=== PATIENT | female | born 1975 | race Caucasian/White ===

== ENCOUNTER → 2016-05-04 | Outpatient (CLI) | payer OTHER ==
--- NOTE | 2016-05-05 11:52 | KCIC ---
PROCEDURE MR of the right shoulder HISTORY Right shoulder pain and limited range of motion for 2 years. No known injury. TECHNIQUE Standard noncontrast images are obtained. COMPARISON FINDINGS The acromioclavicular joint is mildly degenerative and hypertrophic with undersurface mass-effect. Rotator cuff tendinosis with thickening and signal. No evidence of rotator cuff tear. No significant joint subdeltoid bursal fluid or glenohumeral joint fluid. No evidence of a labral tear. No acute articular cartilage defect. The biceps tendon is intact. No bone lesion. No acute fracture. No acute soft tissue injury. IMPRESSION 1. Rotator cuff tendinosis, without evidence of a tear. 2. Mild acromioclavicular joint osteoarthritis. Electronically signed by: Dann Bass MD (May 05, 2016 11:50:53)
== END | disposition home or self-care (01) ==
LOC: KCIC MRI 17:23
PROVIDERS: ATTEND Nurse Practitioner Family
DX: M19.011 Primary osteoarthritis, right shoulder (principal); M25.511 Pain in right shoulder
CPT/HCPCS: 73221

== ENCOUNTER → 2016-06-16 | Outpatient (CLI) | payer OTHER ==
[~2016-06-16] MED LIST: BUPIVACAINE MPF 0.5% 10 ML VIAL for KCIC. IJ ONE; IOHEXOL 300 MG/ML 50 ML VIAL. INT ART ONE; LIDOCAINE 1% Multi-Dose 20 ML VIAL. ID ONE; methylPREDNISolone ACETATE 40 MG/ML VIAL. INT ART ONE
--- NOTE | 2016-06-16 16:50 | KCIC ---
PROCEDURE: Therapeutic right biceps tendon sheath injection using fluoroscopic guidance. HISTORY Chronic pain TECHNIQUE The procedure was explained to the patient as were potential risks, including among others infection, bleeding or allergic reaction. All questions were answered. Informed written consent was obtained. The anterior shoulder was prepped and draped in the usual sterile manner. Following administration of local anesthetic, a 22-gauge needle was advanced into the biceps tendon sheath using anatomic landmarks. Following negative aspiration, position was confirmed with 1 cc Omnipaque-300 contrast. Then a mixture of 2 cc (80 mg) Depo-Medrol and 1 cc 0.5% Marcaine were injected without difficulty. The needle was removed. There was good hemostasis at the injection site. The patient left in stable condition without immediate complication. The patient was given postprocedural instructions, instructed to contact us or the emergency room if there are any complications. Two spot images are obtained. FLUOROSCOPY TIME: 41 seconds Electronically signed by: Dann Bass MD (June 16, 2016 16:48:46)
== END | disposition home or self-care (01) ==
LOC: KCIC 15:17
PROVIDERS: ATTEND Orthopaedic Surgery Sports Medicine
DX: M25.511 Pain in right shoulder (principal); G89.29 Other chronic pain
CPT/HCPCS: 20610; 77002; J1030; Q9967

== ENCOUNTER 2016-07-25 08:11 | Observation (INO) | payer OTHER ==
[~2016-07-25] VITALS: Ht 162.6 cm; Wt 58.5 kg
[2016-07-25] MEDS ORDERED: ONDANSETRON PF 4 MG/2 ML VIAL. IV ONE (08:30)
[2016-07-25] MEDS ORDERED: IV NORMAL SALINE 1000ML BAG 1,000 ML IV ONE (08:30)
[2016-07-25] MEDS: fentaNYL PF VIAL 100 MCG/2 ML VIAL IV PRN ×4 (08:33→10:05)
[2016-07-25] MEDS ORDERED: IOHEXOL 300 MG/ML 75 ML VIAL IV ONE (08:45)
[2016-07-25 08:47] LABS: BASO # 0.1 x10^3/uL (0.0-0.2); BASO % 1 % (0-3); EOS % 2 % (0-3); HEMATOCRIT 40.3 % (36.0-47.0); HEMOGLOBIN 13.4 g/dL (12.0-15.5); LYMPH % 28 % (24-48); MEAN CORPUSCULAR HEMOGLOBIN 29 pg (25-35); MEAN CORPUSCULAR HGB CONC 33 g/dL (31-37); MEAN CORPUSCULAR VOLUME 86 fL (79-100); MONO % 8 % (0-9); NEUT % 62 % (31-73); PLATELET COUNT 338 x10^3/uL (140-400); RED BLOOD COUNT 4.69 x10^6/uL (3.50-5.40); RED CELL DISTRIBUTION WIDTH 14.1 % (11.5-14.5); WHITE BLOOD COUNT 7.2 x10^3/uL (4.0-11.0)
[2016-07-25 08:55] LABS: GFR 61.7; POTASSIUM 3.5 mmol/L (3.5-5.1)
[2016-07-25] MEDS ORDERED: CONTRAST GIVEN MC PRN (09:00)
[2016-07-25 09:01] LABS: ALBUMIN 3.7 g/dL (3.4-5.0); ALBUMIN/GLOBULIN RATIO 0.9 (1.0-1.7); TOTAL BILIRUBIN 0.3 mg/dL (0.2-1.0); TOTAL PROTEIN 7.8 g/dL (6.4-8.2)
[2016-07-25 10:02] LABS: BACTERIA,URINE MODERATE /HPF (0-FEW); BILIRUBIN,URINE NEGATIVE (NEG); GLUCOSE,URINE NEGATIVE (NEG); NITRITE,URINE NEGATIVE (NEG); PH,URINE 5.5; PROTEIN,URINE NEGATIVE (NEG-TRACE); SQUAMOUS EPITHELIAL CELL,UR MANY /LPF; UROBILINOGEN,URINE 0.2 mg/dL (0.2 mg/dL)
[2016-07-25] MEDS ORDERED: HYDROmorphone 2 MG/ML VIAL ONE (10:25)
[2016-07-25] MEDS ORDERED: HYDROmorphone 2 MG/ML VIAL IV ONE (11:00)
--- NOTE | 2016-07-25 11:33 | RAD ---
EXAM: CT abdomen/pelvis with contrast. HISTORY: Right lower quadrant pain and nausea. TECHNIQUE: Computed tomography of the abdomen and pelvis was performed after the intravenous administration of 75 mL Omnipaque 300. COMPARISON: 10/02/2009. FINDINGS: Lung windows through the visualized portions of the bases reveal mild atelectasis. Bone windows reveal no suspicious lesions. A low-density focus adjacent to the falciform ligament is most likely a benign perfusion related phenomenon. There are no suspicious hepatic lesions. The gallbladder, pancreas, adrenal glands and spleen are unremarkable. A small diverticulum is incidentally noted along the posterior aspect of the gastric cardia. A calculus at the right ureterovesical junction measures 4 mm. There is moderate right hydronephrosis and hydroureter with perinephric stranding. No additional renal or ureteral calculi are seen. There are no pathologically enlarged lymph nodes. The appendix is not inflamed. There is no obstruction. IMPRESSION: 1. 4 mm right ureterovesical junction calculus with moderate proximal obstructive findings. *One or more of the following individualized dose reduction techniques were utilized for this examination: 1. Automated exposure control. 2. Adjustment of the mA and/or kV according to patient size. 3. Use of iterative reconstruction technique.
[2016-07-25] MEDS ORDERED: ACETAMINOPHEN 325 MG TABLET. PO PRN (12:30)
[2016-07-25] MEDS ORDERED: ONDANSETRON PF 4 MG/2 ML VIAL. IV PRN (12:30)
[2016-07-25] MEDS: KETOROLAC TROMETHAMINE 30 MG/ML INJ. IV PRN ×2 (12:36→18:31)
[2016-07-25] MEDS: MORPHINE SULFATE 4 MG/ML DISP.SYRIN. IV PRN ×3 (12:39→17:29)
[2016-07-25 13:05] VITALS: BP 170/74
--- NOTE | 2016-07-25 13:12 | PHYS DOC ---
Past Medical History Past Medical History: Anxiety, Depression, Ovarian Cyst, Other Additional Past Medical Histor: INSOMNIA, CHRONIC RIGHT SHOULDER PAIN. Past Surgical History: No Surgical History Alcohol Use: Occasionally Drug Use: None Adult General Chief Complaint Chief Complaint: ABDOMINAL PAIN HPI HPI Patient is a 40 year old female who presents with abdominal pain. The patient reports onset of right lower quadrant pain waking her from sleep this morning at 0600. She states pain is severe, unable to find a position of comfort. She has nausea but has not vomited. Denies fevers or chills, hematemesis, diarrhea or constipation, hematochezia or melena, dysuria or hematuria. Denies previous history of similar pain. No abdominal surgeries. History of kidney stone and ovarian cyst. Review of Systems Review of Systems Constitutional: Denies fever or chills Eyes: Denies change in visual acuity HENT: Denies nasal congestion or sore throat Respiratory: Denies cough or shortness of breath Cardiovascular: Denies chest pain or edema GI: Reports abdominal pain, nausea, denies vomiting, bloody stools or diarrhea : Denies dysuria or hematuria Musculoskeletal: Denies back pain or joint pain Integument: Denies rash or skin lesions Neurologic: Denies headache, focal weakness or sensory changes Current Medications Current Medications Current Medications Medications (Trade) Dose Ordered Sig/Moreno Start Time Stop Time Status Last Admin Dose Admin Fentanyl Citrate (Fentanyl 2ml Vial) 50 mcg PRN Q15MIN PRN 07/25/16 08:30 07/26/16 08:29 07/25/16 10:05 50 MCG Hydromorphone HCl (Dilaudid) 2 mg STK-MED ONCE 07/25/16 10:25 07/25/16 10:26 DC Info (Do NOT chart on this entry -- for MONITORING) 1 each PRN DAILY PRN 07/25/16 09:00 07/27/16 08:59 Iohexol (Omnipaque 300 Mg/ml) 75 ml 1X ONCE 07/25/16 08:45 07/25/16 08:47 DC 07/25/16 09:54 75 ML Ondansetron HCl (Zofran) 4 mg 1X ONCE 07/25/16 08:30 07/25/16 08:31 DC 07/25/16 08:33 4 MG Sodium Chloride 1,000 ml @ 1,000 mls/hr 1X ONCE 07/25/16 08:30 07/25/16 09:29 DC 07/25/16 08:33 1,000 MLS/HR Allergies Allergies Allergies Coded Allergies Type Severity Reaction Last Updated Verified erythromycin base Allergy Intermediate 06/16/16 Yes Physical Exam Physical Exam Constitutional: Well developed, well nourished, moderate distress HENT: Normocephalic, atraumatic, bilateral external ears normal, oropharynx moist, nose normal. Eyes: conjunctiva normal, no discharge. Neck: supple, no stridor. Cardiovascular: RRR, no murmurs, no edema. Lungs & Thorax: LCTAB, no wheezing, no respiratory distress. Abdomen: soft, right lower quadrant tenderness with voluntary guarding, no rebound tenderness, abdomen otherwise nontender, no masses or pulsatile masses, nondistended. Skin: Warm, dry, no erythema, no rash. Back: No CVA tenderness Extremities: No tenderness, no edema. Neurologic: Alert and oriented X 3, no focal deficits noted. Psychologic: Anxious Current Patient Data Vital Signs Vital Signs Date Time Temp Pulse Resp B/P (MAP) Pulse Ox O2 Delivery O2 Flow Rate FiO2 07/25/16 11:30 58 15 161/99 (119) 96 07/25/16 08:21 97.5 Room Air 97.5 Lab Values Laboratory Tests Test 07/25/16 08:04 07/25/16 08:25 07/25/16 08:50 POC Urine HCG, Qualitative Hcg negative (Negative) White Blood Count 7.2 x10^3/uL (4.0-11.0) Red Blood Count 4.69 x10^6/uL (3.50-5.40) Hemoglobin 13.4 g/dL (12.0-15.5) Hematocrit 40.3 % (36.0-47.0) Mean Corpuscular Volume 86 fL (79-100) Mean Corpuscular Hemoglobin 29 pg (25-35) Mean Corpuscular Hemoglobin Concent 33 g/dL (31-37) Red Cell Distribution Width 14.1 % (11.5-14.5) Platelet Count 338 x10^3/uL (140-400) Neutrophils (%) (Auto) 62 % (31-73) Lymphocytes (%) (Auto) 28 % (24-48) Monocytes (%) (Auto) 8 % (0-9) Eosinophils (%) (Auto) 2 % (0-3) Basophils (%) (Auto) 1 % (0-3) Neutrophils # (Auto) 4.5 x10^3uL (1.8-7.7) Lymphocytes # (Auto) 2.0 x10^3/uL (1.0-4.8) Monocytes # (Auto) 0.6 x10^3/uL (0.0-1.1) Eosinophils # (Auto) 0.1 x10^3/uL (0.0-0.7) Basophils # (Auto) 0.1 x10^3/uL (0.0-0.2) Sodium Level 142 mmol/L (136-145) Potassium Level 3.5 mmol/L (3.5-5.1) Chloride Level 105 mmol/L (98-107) Carbon Dioxide Level 25 mmol/L (21-32) Anion Gap 12 (6-14) Blood Urea Nitrogen 14 mg/dL (7-20) Creatinine 1.0 mg/dL (0.6-1.0) Estimated GFR (Cockcroft-Gault) 61.7 BUN/Creatinine Ratio 14 (6-20) Glucose Level 132 mg/dL (70-99) H Calcium Level 9.0 mg/dL (8.5-10.1) Total Bilirubin 0.3 mg/dL (0.2-1.0) Aspartate Amino Transferase (AST) 18 U/L (15-37) Alanine Aminotransferase (ALT) 37 U/L (14-59) Alkaline Phosphatase 78 U/L (46-116) Total Protein 7.8 g/dL (6.4-8.2) Albumin 3.7 g/dL (3.4-5.0) Albumin/Globulin Ratio 0.9 (1.0-1.7) L Urine Collection Type Unknown Urine Color Yellow Urine Clarity Cloudy Urine pH 5.5 Urine Specific [place] 1.025 Urine Protein Negative mg/dL (NEG-TRACE) Urine Glucose (UA) Negative mg/dL (NEG) Urine Ketones (Stick) Negative mg/dL (NEG) Urine Blood Large (NEG) Urine Nitrite Negative (NEG) Urine Bilirubin Negative (NEG) Urine Urobilinogen Dipstick 0.2 mg/dL (0.2 mg/dL) Urine Leukocyte Esterase Moderate (NEG) Urine RBC 11-20 /HPF (0-2) Urine WBC 5-10 /HPF (0-4) Urine Squamous Epithelial Cells Many /LPF Urine Bacteria Moderate /HPF (0-FEW) Laboratory Tests 07/25/16 08:25 Laboratory Tests 07/25/16 08:25 EKG EKG [] Radiology/Procedures Radiology/Procedures PROCEDURE: CT ABD PELV W/ IV CONTRST ONLY EXAM: CT abdomen/pelvis with contrast. HISTORY: Right lower quadrant pain and nausea. TECHNIQUE: Computed tomography of the abdomen and pelvis was performed after the intravenous administration of 75 mL Omnipaque 300. COMPARISON: 10/02/2009. FINDINGS: Lung windows through the visualized portions of the bases reveal mild atelectasis. Bone windows reveal no suspicious lesions. A low-density focus adjacent to the falciform ligament is most likely a benign perfusion related phenomenon. There are no suspicious hepatic lesions. The gallbladder, pancreas, adrenal glands and spleen are unremarkable. A small diverticulum is incidentally noted along the posterior aspect of the gastric cardia. A calculus at the right ureterovesical junction measures 4 mm. There is moderate right hydronephrosis and hydroureter with perinephric stranding. No additional renal or ureteral calculi are seen. There are no pathologically enlarged lymph nodes. The appendix is not inflamed. There is no obstruction. IMPRESSION: 1. 4 mm right ureterovesical junction calculus with moderate proximal obstructive findings. *One or more of the following individualized dose reduction techniques were utilized for this examination: 1. Automated exposure control. 2. Adjustment of the mA and/or kV according to patient size. 3. Use of iterative reconstruction technique. DICTATED and SIGNED BY: ALFRED DAWN MD DATE: 07/25/161123[] Course & Med Decision Making Course & Med Decision Making Pertinent Labs and Imaging studies reviewed. (See chart for details) The patient presents with right lower quadrant pain. Gave pain medication, antiemetics, IV fluids. Obtained labs, UA, CT of the abdomen and pelvis. There was a significant delay in receiving radiology read after the CT was performed. Ultimately found to have 4 mm ureteral stone. She had ongoing severe pain. There is evidence of current infection. She did not feel well enough to go home. Discussed with Dr. Fontenot who is out of town this week and not available for consult. The patient prefers to stay at [facility] rather than be transferred. I discussed with Dr. pena who agrees to admit to the hospital. Patient does understand that she'll have to be transferred if any urologic intervention is needed. Gave Rocephin here, urine culture sent. We'll continue IV fluid hydration and pain medication. The patient is being admitted in stable condition. Dragon Disclaimer Dragon Disclaimer This electronic medical record was generated, in whole or in part, using a voice recognition dictation system. Departure Departure Impression: Primary Impression: Kidney stone Additional Impressions: Hydronephrosis Pyelonephritis Disposition: ADMITTED INPATIENT Admitting Physician: Merna Pena Condition: STABLE Referrals: CLARISSA HALL APRN (PCP) Problem Qualifiers Additional Impressions: Hydronephrosis Hydronephrosis type: with ureteral calculous obstruction Qualified Codes: N13.2 - Hydronephrosis with renal and ureteral calculous obstruction ABDELRAHMAN SHERIFF MD Jul 25, 2016 13:12
[2016-07-25 15:00] VITALS: BP 106/68
[2016-07-25] MEDS: IV NORMAL SALINE 1000ML BAG 1,000 ML IV SCH ×2 (15:15→19:52)
[2016-07-25] MEDS ORDERED: ZOLP12.52 PO (15:23)
[2016-07-25] MEDS ORDERED: PHEN37.5 PO (15:23)
[2016-07-25] MEDS ORDERED: CETI10TA16 PO (15:23)
[2016-07-25] MEDS ORDERED: SERT50TA PO (15:23)
[2016-07-25] MEDS ORDERED: DOCU-109 PO (15:23)
[2016-07-25] MEDS ORDERED: CYCL10TA2 PO (15:23)
[2016-07-25] MEDS ORDERED: NORE-68 PO (15:23)
--- NOTE | 2016-07-25 16:41 | ACF ---
Admission Forms Criteria RENAL COLIC AND KIDNEY STONES Clinical Indications for Admission to Inpatient Care ( Place 'X' for any and all applicable criteria): Admission is indicated for ANY ONE of the following (1)(2)(3)(4): [X ]I. Inpatient admission required rather than observation care (Also use Renal Colic and Kidney Stones: Observation Care Criteria as appropriate) because of ANY ONE of the following: [X ]a) Severe pain requiring acute inpatient management [ ]b) Urinary tract infection identified [ ]c) Vomiting that is severe or persistent [ ]d) IV fluid required rather than oral rehydration to replace significant ongoing (eg, for greater than 24 hours) losses (greater than 200 mL/hr or 3 L/m2 per day) [ ]e) Percutaneous or open drainage (eg, abscess, biliary tract) procedures [ ]f) Other condition, treatment or monitoring requiring inpatient admission [ ]II. Impending acute renal failure [ ]III. Bilateral obstruction [ ]IV. Single kidney with obstruction [ ]V. Transplanted kidney with obstruction [ ]. Possible open surgical procedure needed (eg, pyonephrosis, stone removal not amendable to other means) [ ]VII. Hemodynamic instability Extended stay beyond goal length of stay may be needed for(2)(3)(31): [ ]a) Failed initial stone removal (32) [ ]b) Pyonephrosis [ ]c) Obstructive uropathy with urinary tract infection [ ]d) Procedure complications [ ]e) Comorbidities (22) The original [email or web address] content created by [employer] has been revised. The portions of the content which have been revised are identified through the use of italic text or in bold, and [facility] has neither reviewed nor approved the modified material. All other unmodified content is copyright [email or web address]. Please see references footnoted in the original [email or web address] edition 2016 Admission Criteria Met?: Yes MELISSA TOUSSAINT Jul 25, 2016 16:41
[2016-07-25] MEDS ORDERED: TAMSULOSIN 0.4 MG CAP.ER.24H. PO ONE (18:30)
[2016-07-25] MEDS ORDERED: POTASSIUM CHLORIDE 20 MEQ TABLET.ER. PO ONE (18:30)
[2016-07-25] MEDS ORDERED: MORPHINE SULFATE 10 MG/ML VIAL. IV PRN (18:45)
--- NOTE | 2016-07-25 18:54 | PDOC1 ---
History and Physical Date of Admission Date of Admission DATE: 07/25/16 TIME: 18:48 Identification/Chief Complaint Chief Complaint flank pain, right Problems: Source Source: Chart review, Patient History of Present Illness History of Present Illness Ms. Sharpe is a 40 year old female admit from ER with abdominal pain, came by private vehicle, acute pain 8 or 9/10 Today, new onset of right lower quadrant pain this AM. similar to prev. pain , acute pain of renal stone that she passed 7 years ago, while still in ER. today, the pain is severe, unable to find a position of comfort.\ IV pain meds some help. works at the [employer] Past Medical History Cardiovascular: No pertinent hx Pulmonary: No pertinent hx GI: No pertinent hx Heme/Onc: No pertinent hx Hepatobiliary: No pertinent hx Psych: Anxiety, Depression Family History Family History: No Significant Social History Smoke: No ALCOHOL: none Current Problem List Problem List Problems Medical Problems: (1) Hydronephrosis Status: Acute (2) Pyelonephritis Status: Acute Problems: Current Medications Current Medications Current Medications Sodium Chloride 1,000 ml @ 1,000 mls/hr 1X ONCE IV Last administered on 08:33; Start 07/25/16 at 08:30; Stop 07/25/16 at 09:29; Status DC Ondansetron HCl (Zofran) 4 mg 1X ONCE IV Last administered on 07/25/16 08:33 ; Start 07/25/16 at 08:30; Stop 07/25/16 at 08:31; Status DC Fentanyl Citrate (Fentanyl 2ml Vial) 50 mcg PRN Q15MIN PRN IV PAIN GREATER THAN 3/10 Last administered on 07/25/16 10:05; Start 07/25/16 at 08:30; Stop at 18:28; Status DC Iohexol (Omnipaque 300 Mg/ml) 75 ml 1X ONCE IV Last administered on 07/25/16 09:54; Start 07/25/16 at 08:45; Stop 07/25/16 at 08:47; Status DC Info (Do NOT chart on this entry -- for MONITORING) 1 each PRN DAILY PRN MC SEE COMMENTS; Start 07/25/16 at 09:00; Stop 07/27/16 at 08:59 Hydromorphone HCl (Dilaudid) 1 mg 1X ONCE IV Last administered on 07/25/16 10 :27; Start 07/25/16 at 11:00; Stop 07/25/16 at 11:01; Status DC Hydromorphone HCl (Dilaudid) 2 mg STK-MED ONCE .ROUTE ; Start 07/25/16 at 10:25 ; Stop 07/25/16 at 10:26; Status DC Ceftriaxone Sodium 50 ml @ 100 mls/hr 1X ONCE IV Last administered on 12:36; Start 07/25/16 at 12:30; Stop 07/25/16 at 12:48; Status DC Ondansetron HCl (Zofran) 4 mg PRN Q8HRS PRN IV NAUSEA/VOMITING; Start 07/25/16 at 12:30; Stop 07/26/16 at 12:29 Morphine Sulfate 4 mg PRN Q2HR PRN IV PAIN Last administered on 07/25/16 17:29 ; Start 07/25/16 at 12:30; Stop 07/25/16 at 18:43; Status DC Sodium Chloride 1,000 ml @ 150 mls/hr Q6H40M IV Last administered on 15:15; Start 07/25/16 at 12:22; Stop 07/26/16 at 12:21 Acetaminophen (Tylenol) 650 mg PRN Q4HRS PRN PO FEVER; Start 07/25/16 at 12:30 ; Stop 07/26/16 at 12:29 Ketorolac Tromethamine (Toradol) 30 mg PRN Q6HRS PRN IV PAIN Last administered on 07/25/16 18:31; Start 07/25/16 at 12:30; Stop 07/30/16 at 12:29 Ceftriaxone Sodium 1 gm/ Sodium Chloride 50 ml @ 100 mls/hr 1X ONCE IV ; Start 07/25/16 at 13:00; Stop 07/25/16 at 13:29; Status Cancel Tamsulosin HCl (Flomax) 0.4 mg 1X ONCE PO Last administered on 07/25/16 18:26 ; Start 07/25/16 at 18:30; Stop 07/25/16 at 18:31; Status DC Tamsulosin HCl (Flomax) 0.4 mg DAILY PO ; Start 07/26/16 at 09:00 Potassium Chloride (Klor-Con) 20 meq 1X ONCE PO Last administered on t 18:26; Start 07/25/16 at 18:30; Stop 07/25/16 at 18:31; Status DC Morphine Sulfate 6 mg PRN Q2HR PRN IV PAIN; Start 07/25/16 at 18:45; Status UNV Morphine Sulfate (Morphine Ir) 15 mg Q4HRS PRN PO PAIN; Start 07/25/16 at 18:45 ; Status UNV Active Scripts Active Reported Colace (Docusate Sodium) 100 Mg Capsule 100 Mg PO DAILY Cyclobenzaprine Hcl 10 Mg Tablet 1 Tab PO QHS Ambien Cr (Zolpidem Tartrate) 12.5 Mg Tab.mphase 1 Tab PO QHS Zoloft (Sertraline Hcl) 50 Mg Tablet 1.5 Tab PO DAILY Phentermine Hcl 37.5 Mg Tablet 1 Tab PO DAILY Cetirizine Hcl 10 Mg Tablet 1 Tab PO DAILY Microgestin Fe 1.5-30 Tab (Noreth A-Et Estra/Fe Fumarate) 1 Each Tablet 1 Tab PO DAILY Allergies Allergies: Coded Allergies: erythromycin base (Verified Allergy, Intermediate, 06/16/16) lactose (Verified Allergy, Intermediate, Nausea and Vomiting, 07/25/16) ROS Review of System Denies fevers or chills, hematemesis, diarrhea or constipation, hematochezia or melena, dysuria or hematuria General: YES: Malaise, No: Chills, Night Sweats, Fatigue, Appetite, Other PSYCHOLOGICAL ROS: No: Anxiety, Behavioral Disorder, Concentration difficultie , Decreased libido, Depression, Disorientation, Hallucinations, Hostility, Irritablity, Memory difficulties, Mood Swings, Obsessive thoughts, Other Eyes: No Blurry vision, No Decreased vision, No Double vision, No Dry eyes, No Excessive tearing, No Eye Pain, No Itchy Eyes, No Loss of vision, No Photophobia , No Scotomata, No Uses contacts, No Uses glasses, No Other HEENT: No: Heacaches, Visual Changes, Hearing change, Nasal congestion, Nasal discharge, Oral lesions, Sinus pain, Sore Throat, Epistaxis, Sneezing, Snoring, Tinnitus, Vertigo, Vocal changes, Other Respiratory: No: Cough, Hemoptysis, Orthopnea, Pleuritic Pain, Shortness of breath, SOB with excertion, Sputum Changes, Stridor, Tachypnea, Wheezing, Other Cardiovascular: No Chest Pain, No Palpitations, No Orthopnea, No Paroxysmal Noc. Dyspnea, No Edema, No Lt Headedness, No Other Gastrointestinal: Yes Abdominal Pain Genitourinary: YES Pain, YES Flank Pain, No Dysuria, No Frequency, No Incontinence, No Hematuria, No Retention, No Discharge, No Urgency, No Other, No , No , No , No , No , No , No Musculoskeletal: No Gait Disturbance, No Joint Pain, No Joint Stiffness, No Joint Swelling, No Muscle Pain, No Muscular Weakness, No Pain In:, No Swelling In:, No Other Neurological: No Behavorial Changes, No Bowel/Bladder ControlChng, No Confusion , No Dizziness, No Gait Disturbance, No Headaches, No Impaired Coord/balance, No Memory Loss, No Numbness/Tingling, No Seizures, No Speech Problems, No Tremors, No Visual Changes, No Weakness, No Other Skin: No Dry Skin, No Eczema, No Hair Changes, No Lumps, No Mole Changes, No Mottling, No Nail Changes, No Pruritus, No Rash, No Skin Lesion Changes, No Other, No Acne Physical Exam General: Alert, Oriented X3, Cooperative, No acute distress HEENT: Atraumatic, PERRLA, EOMI Lungs: Clear to auscultation, Normal air movement Heart: S1S2, no murmurs Abdomen: Normal bowel sounds, Soft Rectal Exam: deferred Extremities: No clubbing, No cyanosis, Normal pulses Skin: No significant lesion Neuro: Normal speech, Normal tone, Sensation intact Psych/Mental Status: Mood NL Vitals Vitals Vital Signs Date Time Temp Pulse Resp B/P (MAP) Pulse Ox O2 Delivery O2 Flow Rate FiO2 07/25/16 17:59 16 Room Air 07/25/16 15:00 98.3 75 106/68 (81) 98 98.3 Labs Labs Laboratory Tests Test 07/25/16 08:04 07/25/16 08:25 07/25/16 08:50 Bedside Urine HCG, Qualitative Hcg negative (Negative) White Blood Count 7.2 x10^3/uL (4.0-11.0) Red Blood Count 4.69 x10^6/uL (3.50-5.40) Hemoglobin 13.4 g/dL (12.0-15.5) Hematocrit 40.3 % (36.0-47.0) Mean Corpuscular Volume 86 fL (79-100) Mean Corpuscular Hemoglobin 29 pg (25-35) Mean Corpuscular Hemoglobin Concent 33 g/dL (31-37) Red Cell Distribution Width 14.1 % (11.5-14.5) Platelet Count 338 x10^3/uL (140-400) Neutrophils (%) (Auto) 62 % (31-73) Lymphocytes (%) (Auto) 28 % (24-48) Monocytes (%) (Auto) 8 % (0-9) Eosinophils (%) (Auto) 2 % (0-3) Basophils (%) (Auto) 1 % (0-3) Neutrophils # (Auto) 4.5 x10^3uL (1.8-7.7) Lymphocytes # (Auto) 2.0 x10^3/uL (1.0-4.8) Monocytes # (Auto) 0.6 x10^3/uL (0.0-1.1) Eosinophils # (Auto) 0.1 x10^3/uL (0.0-0.7) Basophils # (Auto) 0.1 x10^3/uL (0.0-0.2) Sodium Level 142 mmol/L (136-145) Potassium Level 3.5 mmol/L (3.5-5.1) Chloride Level 105 mmol/L (98-107) Carbon Dioxide Level 25 mmol/L (21-32) Anion Gap 12 (6-14) Blood Urea Nitrogen 14 mg/dL (7-20) Creatinine 1.0 mg/dL (0.6-1.0) Estimated GFR (Cockcroft-Gault) 61.7 BUN/Creatinine Ratio 14 (6-20) Glucose Level 132 mg/dL (70-99) Calcium Level 9.0 mg/dL (8.5-10.1) Total Bilirubin 0.3 mg/dL (0.2-1.0) Aspartate Amino Transf (AST/SGOT) 18 U/L (15-37) Alanine Aminotransferase (ALT/SGPT) 37 U/L (14-59) Alkaline Phosphatase 78 U/L (46-116) Total Protein 7.8 g/dL (6.4-8.2) Albumin 3.7 g/dL (3.4-5.0) Albumin/Globulin Ratio 0.9 (1.0-1.7) Urine Collection Type Unknown Urine Color Yellow Urine Clarity Cloudy Urine pH 5.5 Urine Specific [place] 1.025 Urine Protein Negative mg/dL (NEG-TRACE) Urine Glucose (UA) Negative mg/dL (NEG) Urine Ketones (Stick) Negative mg/dL (NEG) Urine Blood Large (NEG) Urine Nitrite Negative (NEG) Urine Bilirubin Negative (NEG) Urine Urobilinogen Dipstick 0.2 mg/dL (0.2 mg/dL) Urine Leukocyte Esterase Moderate (NEG) Urine RBC 11-20 /HPF (0-2) Urine WBC 5-10 /HPF (0-4) Urine Squamous Epithelial Cells Many /LPF Urine Bacteria Moderate /HPF (0-FEW) Laboratory Tests Test 07/25/16 08:04 07/25/16 08:25 07/25/16 08:50 Bedside Urine HCG, Qualitative Hcg negative (Negative) White Blood Count 7.2 x10^3/uL (4.0-11.0) Red Blood Count 4.69 x10^6/uL (3.50-5.40) Hemoglobin 13.4 g/dL (12.0-15.5) Hematocrit 40.3 % (36.0-47.0) Mean Corpuscular Volume 86 fL (79-100) Mean Corpuscular Hemoglobin 29 pg (25-35) Mean Corpuscular Hemoglobin Concent 33 g/dL (31-37) Red Cell Distribution Width 14.1 % (11.5-14.5) Platelet Count 338 x10^3/uL (140-400) Neutrophils (%) (Auto) 62 % (31-73) Lymphocytes (%) (Auto) 28 % (24-48) Monocytes (%) (Auto) 8 % (0-9) Eosinophils (%) (Auto) 2 % (0-3) Basophils (%) (Auto) 1 % (0-3) Neutrophils # (Auto) 4.5 x10^3uL (1.8-7.7) Lymphocytes # (Auto) 2.0 x10^3/uL (1.0-4.8) Monocytes # (Auto) 0.6 x10^3/uL (0.0-1.1) Eosinophils # (Auto) 0.1 x10^3/uL (0.0-0.7) Basophils # (Auto) 0.1 x10^3/uL (0.0-0.2) Sodium Level 142 mmol/L (136-145) Potassium Level 3.5 mmol/L (3.5-5.1) Chloride Level 105 mmol/L (98-107) Carbon Dioxide Level 25 mmol/L (21-32) Anion Gap 12 (6-14) Blood Urea Nitrogen 14 mg/dL (7-20) Creatinine 1.0 mg/dL (0.6-1.0) Estimated GFR (Cockcroft-Gault) 61.7 BUN/Creatinine Ratio 14 (6-20) Glucose Level 132 mg/dL (70-99) Calcium Level 9.0 mg/dL (8.5-10.1) Total Bilirubin 0.3 mg/dL (0.2-1.0) Aspartate Amino Transf (AST/SGOT) 18 U/L (15-37) Alanine Aminotransferase (ALT/SGPT) 37 U/L (14-59) Alkaline Phosphatase 78 U/L (46-116) Total Protein 7.8 g/dL (6.4-8.2) Albumin 3.7 g/dL (3.4-5.0) Albumin/Globulin Ratio 0.9 (1.0-1.7) Urine Collection Type Unknown Urine Color Yellow Urine Clarity Cloudy Urine pH 5.5 Urine Specific [place] 1.025 Urine Protein Negative mg/dL (NEG-TRACE) Urine Glucose (UA) Negative mg/dL (NEG) Urine Ketones (Stick) Negative mg/dL (NEG) Urine Blood Large (NEG) Urine Nitrite Negative (NEG) Urine Bilirubin Negative (NEG) Urine Urobilinogen Dipstick 0.2 mg/dL (0.2 mg/dL) Urine Leukocyte Esterase Moderate (NEG) Urine RBC 11-20 /HPF (0-2) Urine WBC 5-10 /HPF (0-4) Urine Squamous Epithelial Cells Many /LPF Urine Bacteria Moderate /HPF (0-FEW) VTE Prophylaxis Ordered VTE Prophylaxis Devices: No VTE Pharmacological Prophylaxi: No (obs) Assessment/Plan Assessment/Plan Renal colic Urolithiasis acute flank pain, UTI, possible pyelo from pain admit, pt has passed stone spontaneously before, start flomax, IV fluid home meds, depression, control, allergies, insmonia, we have no urology support here for the next few days, this was discussed with patient at length, limited therapy avail FRANCK SANZ MD Jul 25, 2016 18:54
[2016-07-25] MEDS ORDERED: ZOLPIDEM 5 MG TABLET. PO PRN (19:15)
[2016-07-25 19:35] VITALS: BP_SYST 120; BP_SYST 132; BP_DIAS 72; BP_DIAS 76
[2016-07-25] MEDS: MORPHINE IR 15 MG TABLET PO PRN (19:51)
[2016-07-25] MEDS ORDERED: ZOLPIDEM 5 MG TABLET. PO SCH (21:00)
[2016-07-25] MEDS: CYCLOBENZAPRINE 10 MG TABLET. PO SCH (21:20)
[2016-07-25] MEDS: traZODone 50 MG TABLET. PO PRN (21:20)
[2016-07-25 23:30] VITALS: BP 110/66
[2016-07-26] MEDS: KETOROLAC TROMETHAMINE 30 MG/ML INJ. IV PRN (02:19)
[2016-07-26] MEDS: MORPHINE IR 15 MG TABLET PO PRN ×4 (02:19→16:43)
[2016-07-26 03:21] VITALS: BP 133/85
[2016-07-26] MEDS: IV NORMAL SALINE 1000ML BAG 1,000 ML IV SCH ×4 (05:14→20:55)
[2016-07-26 05:18] LABS: BASO % 0 % (0-3); EOS % 1 % (0-3); HEMATOCRIT 33.6 % (36.0-47.0); HEMOGLOBIN 11.6 g/dL (12.0-15.5); LYMPH # 1.2 x10^3/uL (1.0-4.8); LYMPH % 12 % (24-48); MEAN CORPUSCULAR HEMOGLOBIN 29 pg (25-35); MEAN CORPUSCULAR HGB CONC 34 g/dL (31-37); MEAN CORPUSCULAR VOLUME 85 fL (79-100); MONO % 9 % (0-9); NEUT % 77 % (31-73); PLATELET COUNT 232 x10^3/uL (140-400); RED BLOOD COUNT 3.93 x10^6/uL (3.50-5.40); WHITE BLOOD COUNT 9.9 x10^3/uL (4.0-11.0)
[2016-07-26 05:36] LABS: CALCIUM 7.9 mg/dL (8.5-10.1); CREATININE 1.2 mg/dL (0.6-1.0); POTASSIUM 3.9 mmol/L (3.5-5.1)
[2016-07-26 07:00] VITALS: BP 100/67
[2016-07-26] MEDS: DOCUSATE SODIUM 100 MG CAPSULE. PO SCH (08:37)
[2016-07-26] MEDS: SERTRALINE 25 MG TABLET. PO SCH (08:37)
[2016-07-26] MEDS: CETIRIZINE HCL 10 MG TABLET. PO SCH (08:37)
[2016-07-26] MEDS: TAMSULOSIN 0.4 MG CAP.ER.24H. PO SCH (08:37)
[2016-07-26] MEDS ORDERED: NORETH A ET ESTRA PO SCH ×2 (09:00)
[2016-07-26] MEDS ORDERED: FE FUMARATE PO SCH ×2 (09:00)
[2016-07-26] MEDS ORDERED: IV NORMAL SALINE 1000ML BAG 1,000 ML IV ONE ×2 (10:30→13:00)
[2016-07-26 11:00] VITALS: BP 109/69
[2016-07-26] MEDS ORDERED: IBUPROFEN 800 MG TABLET. PO ONE (12:30)
[2016-07-26] MEDS: SUMAtriptan SUCCINATE 25 MG TABLET PO PRN ×2 (13:12→16:45)
--- NOTE | 2016-07-26 13:13 | PDOC ---
PROGRESS NOTES Chief Complaint Chief Complaint Renal colic Urolithiasis acute flank pain, UTI, possible pyelo depression, insmonia, History of Present Illness History of Present Illness pain has much improved in flank, pain from upper flank has migrated to near the bladder, she reports she can feel the pain move lower overnight no complains of Headache pain, migrane bolus NS X2 liters, cont 150/.hr, check right renal US, check for hydro, some renal change, maybe from toradol, will remove NSAIDS today cont aggressive hydration complains of insomnia, increase ambien dose Vitals Vitals Vital Signs Date Time Temp Pulse Resp B/P (MAP) Pulse Ox O2 Delivery O2 Flow Rate FiO2 07/26/16 11:23 16 Room Air 07/26/16 11:00 98.3 69 109/69 (82) 96 98.3 Physical Exam General: Alert, Oriented X3, Cooperative, No acute distress Abdomen: Normal bowel sounds, Soft Extremities: No clubbing, No cyanosis, Normal pulses Skin: No significant lesion Labs LABS Laboratory Tests Test 07/26/16 04:50 White Blood Count 9.9 x10^3/uL (4.0-11.0) Red Blood Count 3.93 x10^6/uL (3.50-5.40) Hemoglobin 11.6 g/dL (12.0-15.5) Hematocrit 33.6 % (36.0-47.0) Mean Corpuscular Volume 85 fL (79-100) Mean Corpuscular Hemoglobin 29 pg (25-35) Mean Corpuscular Hemoglobin Concent 34 g/dL (31-37) Red Cell Distribution Width 14.0 % (11.5-14.5) Platelet Count 232 x10^3/uL (140-400) Neutrophils (%) (Auto) 77 % (31-73) Lymphocytes (%) (Auto) 12 % (24-48) Monocytes (%) (Auto) 9 % (0-9) Eosinophils (%) (Auto) 1 % (0-3) Basophils (%) (Auto) 0 % (0-3) Neutrophils # (Auto) 7.6 x10^3uL (1.8-7.7) Lymphocytes # (Auto) 1.2 x10^3/uL (1.0-4.8) Monocytes # (Auto) 0.9 x10^3/uL (0.0-1.1) Eosinophils # (Auto) 0.1 x10^3/uL (0.0-0.7) Basophils # (Auto) 0.0 x10^3/uL (0.0-0.2) Sodium Level 142 mmol/L (136-145) Potassium Level 3.9 mmol/L (3.5-5.1) Chloride Level 109 mmol/L (98-107) Carbon Dioxide Level 26 mmol/L (21-32) Anion Gap 7 (6-14) Blood Urea Nitrogen 13 mg/dL (7-20) Creatinine 1.2 mg/dL (0.6-1.0) Estimated GFR (Cockcroft-Gault) 50.0 Glucose Level 111 mg/dL (70-99) Calcium Level 7.9 mg/dL (8.5-10.1) Review of Systems Review of Systems flank and abd pain better now headache urine is very dark, not much urine output, feels dry mouth, Assessment and Plan Assessmemt and Plan Problems Medical Problems: (1) Hydronephrosis Status: Acute (2) Pyelonephritis Status: Acute Problems: Comment Review of Relevant I have reviewed the following items annemarie (where applicable) has been applied. Labs Laboratory Tests Test 07/25/16 08:04 07/25/16 08:25 07/25/16 08:50 07/26/16 04:50 Bedside Urine HCG, Qualitative Hcg negative (Negative) White Blood Count 7.2 x10^3/uL (4.0-11.0) 9.9 x10^3/uL (4.0-11.0) Red Blood Count 4.69 x10^6/uL (3.50-5.40) 3.93 x10^6/uL (3.50-5.40) Hemoglobin 13.4 g/dL (12.0-15.5) 11.6 g/dL (12.0-15.5) Hematocrit 40.3 % (36.0-47.0) 33.6 % (36.0-47.0) Mean Corpuscular Volume 86 fL (79-100) 85 fL (79-100) Mean Corpuscular Hemoglobin 29 pg (25-35) 29 pg (25-35) Mean Corpuscular Hemoglobin Concent 33 g/dL (31-37) 34 g/dL (31-37) Red Cell Distribution Width 14.1 % (11.5-14.5) 14.0 % (11.5-14.5) Platelet Count 338 x10^3/uL (140-400) 232 x10^3/uL (140-400) Neutrophils (%) (Auto) 62 % (31-73) 77 % (31-73) Lymphocytes (%) (Auto) 28 % (24-48) 12 % (24-48) Monocytes (%) (Auto) 8 % (0-9) 9 % (0-9) Eosinophils (%) (Auto) 2 % (0-3) 1 % (0-3) Basophils (%) (Auto) 1 % (0-3) 0 % (0-3) Neutrophils # (Auto) 4.5 x10^3uL (1.8-7.7) 7.6 x10^3uL (1.8-7.7) Lymphocytes # (Auto) 2.0 x10^3/uL (1.0-4.8) 1.2 x10^3/uL (1.0-4.8) Monocytes # (Auto) 0.6 x10^3/uL (0.0-1.1) 0.9 x10^3/uL (0.0-1.1) Eosinophils # (Auto) 0.1 x10^3/uL (0.0-0.7) 0.1 x10^3/uL (0.0-0.7) Basophils # (Auto) 0.1 x10^3/uL (0.0-0.2) 0.0 x10^3/uL (0.0-0.2) Sodium Level 142 mmol/L (136-145) 142 mmol/L (136-145) Potassium Level 3.5 mmol/L (3.5-5.1) 3.9 mmol/L (3.5-5.1) Chloride Level 105 mmol/L (98-107) 109 mmol/L (98-107) Carbon Dioxide Level 25 mmol/L (21-32) 26 mmol/L (21-32) Anion Gap 12 (6-14) 7 (6-14) Blood Urea Nitrogen 14 mg/dL (7-20) 13 mg/dL (7-20) Creatinine 1.0 mg/dL (0.6-1.0) 1.2 mg/dL (0.6-1.0) Estimated GFR (Cockcroft-Gault) 61.7 50.0 BUN/Creatinine Ratio 14 (6-20) Glucose Level 132 mg/dL (70-99) 111 mg/dL (70-99) Calcium Level 9.0 mg/dL (8.5-10.1) 7.9 mg/dL (8.5-10.1) Total Bilirubin 0.3 mg/dL (0.2-1.0) Aspartate Amino Transf (AST/SGOT) 18 U/L (15-37) Alanine Aminotransferase (ALT/SGPT) 37 U/L (14-59) Alkaline Phosphatase 78 U/L (46-116) Total Protein 7.8 g/dL (6.4-8.2) Albumin 3.7 g/dL (3.4-5.0) Albumin/Globulin Ratio 0.9 (1.0-1.7) Urine Collection Type Unknown Urine Color Yellow Urine Clarity Cloudy Urine pH 5.5 Urine Specific [place] 1.025 Urine Protein Negative mg/dL (NEG-TRACE) Urine Glucose (UA) Negative mg/dL (NEG) Urine Ketones (Stick) Negative mg/dL (NEG) Urine Blood Large (NEG) Urine Nitrite Negative (NEG) Urine Bilirubin Negative (NEG) Urine Urobilinogen Dipstick 0.2 mg/dL (0.2 mg/dL) Urine Leukocyte Esterase Moderate (NEG) Urine RBC 11-20 /HPF (0-2) Urine WBC 5-10 /HPF (0-4) Urine Squamous Epithelial Cells Many /LPF Urine Bacteria Moderate /HPF (0-FEW) Laboratory Tests Test 07/26/16 04:50 White Blood Count 9.9 x10^3/uL (4.0-11.0) Red Blood Count 3.93 x10^6/uL (3.50-5.40) Hemoglobin 11.6 g/dL (12.0-15.5) Hematocrit 33.6 % (36.0-47.0) Mean Corpuscular Volume 85 fL (79-100) Mean Corpuscular Hemoglobin 29 pg (25-35) Mean Corpuscular Hemoglobin Concent 34 g/dL (31-37) Red Cell Distribution Width 14.0 % (11.5-14.5) Platelet Count 232 x10^3/uL (140-400) Neutrophils (%) (Auto) 77 % (31-73) Lymphocytes (%) (Auto) 12 % (24-48) Monocytes (%) (Auto) 9 % (0-9) Eosinophils (%) (Auto) 1 % (0-3) Basophils (%) (Auto) 0 % (0-3) Neutrophils # (Auto) 7.6 x10^3uL (1.8-7.7) Lymphocytes # (Auto) 1.2 x10^3/uL (1.0-4.8) Monocytes # (Auto) 0.9 x10^3/uL (0.0-1.1) Eosinophils # (Auto) 0.1 x10^3/uL (0.0-0.7) Basophils # (Auto) 0.0 x10^3/uL (0.0-0.2) Sodium Level 142 mmol/L (136-145) Potassium Level 3.9 mmol/L (3.5-5.1) Chloride Level 109 mmol/L (98-107) Carbon Dioxide Level 26 mmol/L (21-32) Anion Gap 7 (6-14) Blood Urea Nitrogen 13 mg/dL (7-20) Creatinine 1.2 mg/dL (0.6-1.0) Estimated GFR (Cockcroft-Gault) 50.0 Glucose Level 111 mg/dL (70-99) Calcium Level 7.9 mg/dL (8.5-10.1) Medications Current Medications Sodium Chloride 1,000 ml @ 1,000 mls/hr 1X ONCE IV Last administered on 08:33; Start 07/25/16 at 08:30; Stop 07/25/16 at 09:29; Status DC Ondansetron HCl (Zofran) 4 mg 1X ONCE IV Last administered on 07/25/16 08:33 ; Start 07/25/16 at 08:30; Stop 07/25/16 at 08:31; Status DC Fentanyl Citrate (Fentanyl 2ml Vial) 50 mcg PRN Q15MIN PRN IV PAIN GREATER THAN 3/10 Last administered on 07/25/16 10:05; Start 07/25/16 at 08:30; Stop at 18:28; Status DC Iohexol (Omnipaque 300 Mg/ml) 75 ml 1X ONCE IV Last administered on 07/25/16 09:54; Start 07/25/16 at 08:45; Stop 07/25/16 at 08:47; Status DC Info (Do NOT chart on this entry -- for MONITORING) 1 each PRN DAILY PRN MC SEE COMMENTS; Start 07/25/16 at 09:00; Stop 07/26/16 at 05:20; Status DC Hydromorphone HCl (Dilaudid) 1 mg 1X ONCE IV Last administered on 07/25/16 10 :27; Start 07/25/16 at 11:00; Stop 07/25/16 at 11:01; Status DC Hydromorphone HCl (Dilaudid) 2 mg STK-MED ONCE .ROUTE ; Start 07/25/16 at 10:25 ; Stop 07/25/16 at 10:26; Status DC Ceftriaxone Sodium 50 ml @ 100 mls/hr 1X ONCE IV Last administered on 12:36; Start 07/25/16 at 12:30; Stop 07/25/16 at 12:48; Status DC Ondansetron HCl (Zofran) 4 mg PRN Q8HRS PRN IV NAUSEA/VOMITING; Start 07/25/16 at 12:30; Stop 07/26/16 at 05:20; Status DC Morphine Sulfate 4 mg PRN Q2HR PRN IV PAIN Last administered on 07/25/16 17:29 ; Start 07/25/16 at 12:30; Stop 07/25/16 at 18:43; Status DC Sodium Chloride 1,000 ml @ 150 mls/hr Q6H40M IV Last administered on 05:14; Start 07/25/16 at 12:22; Stop 07/26/16 at 05:20; Status DC Acetaminophen (Tylenol) 650 mg PRN Q4HRS PRN PO FEVER; Start 07/25/16 at 12:30 ; Stop 07/26/16 at 05:20; Status DC Ketorolac Tromethamine (Toradol) 30 mg PRN Q6HRS PRN IV PAIN Last administered on 07/26/16 02:19; Start 07/25/16 at 12:30; Stop 07/26/16 at 05:20; Status DC Ceftriaxone Sodium 1 gm/ Sodium Chloride 50 ml @ 100 mls/hr 1X ONCE IV ; Start 07/25/16 at 13:00; Stop 07/25/16 at 13:29; Status Cancel Tamsulosin HCl (Flomax) 0.4 mg 1X ONCE PO Last administered on 07/25/16 18:26 ; Start 07/25/16 at 18:30; Stop 07/25/16 at 18:31; Status DC Tamsulosin HCl (Flomax) 0.4 mg DAILY PO Last administered on 07/26/16 08:37; Start 07/26/16 at 09:00 Potassium Chloride (Klor-Con) 20 meq 1X ONCE PO Last administered on 18:26; Start 07/25/16 at 18:30; Stop 07/25/16 at 18:31; Status DC Morphine Sulfate 6 mg PRN Q2HR PRN IV PAIN Last administered on 07/25/16 21:45 ; Start 07/25/16 at 18:45; Stop 07/26/16 at 19:00 Morphine Sulfate (Morphine Ir) 15 mg PRN Q4HRS PRN PO PAIN Last administered on 07/26/16 10:23; Start 07/25/16 at 18:45 Cetirizine HCl (ZyrTEC) 10 mg DAILY PO Last administered on 07/26/16 08:37; Start 07/26/16 at 09:00 Cyclobenzaprine HCl (Flexeril) 10 mg QHS PO Last administered on 07/25/16 21: 20; Start 07/25/16 at 21:00 Docusate Sodium (Colace) 100 mg DAILY PO Last administered on 07/26/16 08:37; Start 07/26/16 at 09:00 Sertraline HCl (Zoloft) 75 mg DAILY PO Last administered on 07/26/16 08:37; Start 07/26/16 at 09:00 Non-Formulary Medication 1 tab DAILY PO ; Start 07/26/16 at 09:00; Stop at 09:00; Status DC Zolpidem Tartrate (Ambien) 5 mg QHS PO Last administered on 07/25/16 21:20; Start 07/25/16 at 21:00; Stop 07/26/16 at 12:34; Status DC Trazodone HCl (Desyrel) 50 mg PRN QHS PRN PO INSOMNIA Last administered on 07/25 21:20; Start 07/25/16 at 19:00 Zolpidem Tartrate (Ambien) 5 mg PRN QHS PRN PO IF CONT INSOMNIA; Start at 19:15 Non-Formulary Medication 1 tab DAILY PO ; Start 07/26/16 at 09:00; Stop at 13:06; Status DC Sodium Chloride 1,000 ml @ 1,000 mls/hr 1X ONCE IV Last administered on 11:05; Start 07/26/16 at 10:30; Stop 07/26/16 at 11:29; Status DC Sodium Chloride 1,000 ml @ 150 mls/hr Q6H40M IV Last administered on 12:12; Start 07/26/16 at 10:30 Sumatriptan Succinate (Imitrex) 50 mg PRN Q2HR PRN PO MIGRAINE HEADACHE; Start 07/26/16 at 12:30 Ibuprofen (Motrin) 800 mg 1X ONCE PO ; Start 07/26/16 at 12:30; Stop 07/26/16 at 12:31; Status DC Zolpidem Tartrate (Ambien) 10 mg QHS PO ; Start 07/26/16 at 21:00 Sodium Chloride 1,000 ml @ 1,000 mls/hr 1X ONCE IV Last administered on 13:00; Start 07/26/16 at 13:00; Stop 07/26/16 at 13:59 Active Scripts Active Reported Colace (Docusate Sodium) 100 Mg Capsule 100 Mg PO DAILY Cyclobenzaprine Hcl 10 Mg Tablet 1 Tab PO QHS Ambien Cr (Zolpidem Tartrate) 12.5 Mg Tab.mphase 1 Tab PO QHS Zoloft (Sertraline Hcl) 50 Mg Tablet 1.5 Tab PO DAILY Phentermine Hcl 37.5 Mg Tablet 1 Tab PO DAILY Cetirizine Hcl 10 Mg Tablet 1 Tab PO DAILY Microgestin Fe 1.5-30 Tab (Noreth A-Et Estra/Fe Fumarate) 1 Each Tablet 1 Tab PO DAILY Vitals/I & O Vital Sign - Last 24 Hours 07/25/16 07/25/16 07/25/16 07/25/16 15:00 15:08 15:23 17:29 Temp 98.3 98.3 Pulse 75 Resp 18 16 16 B/P (MAP) 106/68 (81) Pulse Ox 98 O2 Delivery Room Air Room Air Room Air Room Air 07/25/16 07/25/16 07/25/16 07/25/16 17:59 19:35 19:51 20:00 Temp 97.7 97.7 Pulse 70 Resp 16 16 18 B/P (MAP) 120/72 (88) Pulse Ox 98 O2 Delivery Room Air Room Air Room Air Room Air 07/25/16 07/25/16 07/25/16 07/26/16 21:45 22:45 23:30 02:19 Temp 98.1 98.1 Pulse 78 Resp 18 16 16 18 B/P (MAP) 110/66 (81) Pulse Ox 94 O2 Delivery Room Air Room Air Room Air 07/26/16 07/26/16 07/26/16 07/26/16 03:21 06:22 07:00 10:23 Temp 97.7 98.2 97.7 98.2 Pulse 90 66 Resp 20 18 18 16 B/P (MAP) 133/85 (101) 100/67 (78) Pulse Ox 98 96 O2 Delivery Room Air Room Air Room Air Room Air 07/26/16 07/26/16 11:00 11:23 Temp 98.3 98.3 Pulse 69 Resp 18 16 B/P (MAP) 109/69 (82) Pulse Ox 96 O2 Delivery Room Air Room Air Intake and Output 07/25/16 07/25/16 07/26/16 15:00 23:00 07:00 Intake Total 1050 ml 0 ml Output Total 100 ml Balance 1050 ml -100 ml FRANCK SANZ MD Jul 26, 2016 13:13
[2016-07-26] MEDS ORDERED: BUTALB/APAP/CAFEIN 50/325/40MG TABLET. PO PRN (13:15)
[2016-07-26 15:00] VITALS: BP 106/68
--- NOTE | 2016-07-26 15:45 | RAD ---
EXAM: Renal/retroperitonal ultrasound HISTORY: Renal stone, hydronephrosis. COMPARISON: 07/25/2016. FINDINGS: Ultrasound of the kidneys, bladder and retroperitoneum was performed. The right kidney measures 14.5 cm. Cortical thickness and echogenicity are preserved. There is mild right pelviectasis. This appears improved since recent CT. The lumber stacker measures an echogenic focus consistent with a calculus in the interpolar region. This is likely an artifact on comparison with CT where no renal calculus was seen. Trace perinephric fluid persists. The left kidney measures 12.1 cm. Cortical thickness and echogenicity are preserved. There is no hydronephrosis. Images of the bladder reveal no gross abnormality. Neither ureteral jet is visualized currently. IMPRESSION: 1. Mild right hydronephrosis appears improved since the prior study. Trace perinephric fluid persists. 2. Neither ureteral jet is visualized currently.
[2016-07-26 19:20] VITALS: BP 125/77
[2016-07-26] MEDS: traZODone 50 MG TABLET. PO PRN (20:54)
[2016-07-26] MEDS: CYCLOBENZAPRINE 10 MG TABLET. PO SCH (20:54)
[2016-07-26] MEDS ORDERED: ZOLPIDEM 5 MG TABLET. PO SCH (21:00)
[2016-07-26 23:27] VITALS: BP 117/71
[2016-07-27 03:20] VITALS: BP 93/48
[2016-07-27] MEDS: IV NORMAL SALINE 1000ML BAG 1,000 ML IV SCH (04:30)
[2016-07-27 04:39] LABS: BASO % 0 % (0-3); EOS % 3 % (0-3); HEMATOCRIT 31.1 % (36.0-47.0); HEMOGLOBIN 10.4 g/dL (12.0-15.5); LYMPH # 2.1 x10^3/uL (1.0-4.8); LYMPH % 29 % (24-48); MEAN CORPUSCULAR HEMOGLOBIN 29 pg (25-35); MEAN CORPUSCULAR HGB CONC 34 g/dL (31-37); MEAN CORPUSCULAR VOLUME 87 fL (79-100); MONO % 8 % (0-9); NEUT % 60 % (31-73); PLATELET COUNT 220 x10^3/uL (140-400); RED BLOOD COUNT 3.56 x10^6/uL (3.50-5.40)
[2016-07-27 05:25] LABS: ALBUMIN 2.3 g/dL (3.4-5.0); TOTAL PROTEIN 5.3 g/dL (6.4-8.2)
[2016-07-27 05:26] LABS: ALBUMIN/GLOBULIN RATIO 0.8 (1.0-1.7); CALCIUM 7.7 mg/dL (8.5-10.1); CREATININE 0.9 mg/dL (0.6-1.0); GFR 69.7; POTASSIUM 3.8 mmol/L (3.5-5.1); TOTAL BILIRUBIN 0.2 mg/dL (0.2-1.0)
[2016-07-27 07:00] VITALS: BP 103/65
[2016-07-27] MEDS: TAMSULOSIN 0.4 MG CAP.ER.24H. PO SCH (09:46)
[2016-07-27] MEDS: CETIRIZINE HCL 10 MG TABLET. PO SCH (09:46)
[2016-07-27] MEDS: SERTRALINE 25 MG TABLET. PO SCH (09:46)
[2016-07-27] MEDS: DOCUSATE SODIUM 100 MG CAPSULE. PO SCH (09:46)
[2016-07-27] MEDS ORDERED: TAMS0.4C97 PO (10:15)
[2016-07-27] MEDS ORDERED: MORP15TA PO (10:15)
--- NOTE | 2016-07-27 14:12 | PDOC3 ---
Discharge Summary [facility] Date of Admission: Jul 25, 2016 Discharge Date: Jul 27, 2016 Admitting Diagnosis Renal colic right Urolithiasis with moderate hydronephrosis acute flank pain, depression, insmonia, Problems: Final Diagnosis Brief Hospital Course Ms. Choi is a 40 old F, comes for right flank pain , CT showed a right ureter 4mm stone. Cr was up to 1.2, but US showed hydronephrosis is better. Pt feels better, pain is better, Cr down to 0.9, possible passed some sera stone (pt not sure). dc home, no urologist in this hosp at this week. ask her to go to ER or uro as outpt if needed. dc with morphine 10 pills and flomax. asked her to hydrate enough. dc time 35min General: Alert, Oriented X3, Cooperative, No acute distress Abdomen: Normal bowel sounds, Soft. mild right flank tenderness Extremities: No clubbing, No cyanosis, Normal pulses Skin: No significant lesion Problems: Disposition home CONDITION AT DISCHARGE: Improved Diet regular Scheduled Cetirizine Hcl (Cetirizine Hcl), 1 TAB PO DAILY, (Reported) Cyclobenzaprine Hcl (Cyclobenzaprine Hcl), 1 TAB PO QHS, (Reported) Docusate Sodium (Colace), 100 MG PO DAILY, (Reported) Noreth A-Et Estra/Fe Fumarate (Microgestin Fe 1.5-30 Tab), 1 TAB PO DAILY, ( Reported) Phentermine Hcl (Phentermine Hcl), 1 TAB PO DAILY, (Reported) Sertraline Hcl (Zoloft), 1.5 TAB PO DAILY, (Reported) Tamsulosin Hcl (Flomax), 0.4 MG PO DAILY Zolpidem Tartrate (Ambien Cr), 1 TAB PO QHS, (Reported) Scheduled PRN Morphine Sulfate (Morphine Sulfate), 15 MG PO PRN Q4HRS PRN for PAIN Follow Up pcp in 2 weeks EMILY MOCK MD Jul 27, 2016 14:12
== END 2016-07-27 11:00 | disposition home or self-care (01) ==
LOC: ER 08:11 → UNDOADMOB 11:58 → 4 NORTH 11:58
PROVIDERS: ADMIT Internal Medicine; ATTEND Internal Medicine
DX: N13.6 Pyonephrosis (principal); N23 Unspecified renal colic; F32.9 Major depressive disorder, single episode, unspecified; F41.9 Anxiety disorder, unspecified; G47.00 Insomnia, unspecified; G89.29 Other chronic pain; Z87.442 Personal history of urinary calculi
CPT/HCPCS: 36415; 74177; 76770; 80048; 80053; 81001; 81025; 85027; 87086; 96361; 96365; 96375; 96376; 99285; G0378; J0690; J1170; J1885; J2270; J2405; J3010; J7030; Q9967; G0379

== ENCOUNTER 2018-05-02 06:18 | Emergency (ER) | payer BC, OTHER ==
[~2018-05-02] VITALS: Ht 165.1 cm; Wt 95.3 kg
[~2018-05-02 06:18] MED LIST changes: -BUPIVACAINE MPF 0.5% 10 ML VIAL for KCIC. IJ ONE; +CETI10TA16 PO; +CYCL10TA2 PO; +DOCU-109 PO; -IOHEXOL 300 MG/ML 50 ML VIAL. INT ART ONE; -LIDOCAINE 1% Multi-Dose 20 ML VIAL. ID ONE; +MORP15TA PO; +NORE-68 PO; +PHEN37.5 PO; +SERT50TA PO; +TAMS0.4C97 PO; +ZOLP12.52 PO; -methylPREDNISolone ACETATE 40 MG/ML VIAL. INT ART ONE
[2018-05-02] MEDS ORDERED: IV NORMAL SALINE 1000ML BAG 1,000 ML IV ONE (06:45)
[2018-05-02] MEDS ORDERED: ONDANSETRON PF 4 MG/2 ML VIAL. IV ONE (06:45)
[2018-05-02] MEDS ORDERED: fentaNYL PF VIAL 100 MCG/2 ML VIAL IV ONE (06:45)
[2018-05-02] MEDS ORDERED: KETOROLAC 30 MG/ML VIAL. IV ONE (06:45)
[2018-05-02 06:49] LABS: BILIRUBIN,URINE SMALL (NEG); CLARITY,URINE CLOUDY; COLOR,URINE YELLOW; NITRITE,URINE NEGATIVE (NEG); PROTEIN,URINE NEGATIVE (NEG-TRACE)
[2018-05-02 06:58] LABS: BASO # 0.1 x10^3/uL (0.0-0.2); BASO % 1 % (0-3); EOS # 0.2 x10^3/uL (0.0-0.7); EOS % 3 % (0-3); HEMATOCRIT 38.6 % (36.0-47.0); HEMOGLOBIN 12.8 g/dL (12.0-15.5); LYMPH # 1.5 x10^3/uL (1.0-4.8); LYMPH % 19 % (24-48); MEAN CORPUSCULAR HEMOGLOBIN 29 pg (25-35); MEAN CORPUSCULAR HGB CONC 33 g/dL (31-37); MEAN CORPUSCULAR VOLUME 86 fL (79-100); MONO # 0.5 x10^3/uL (0.0-1.1); MONO % 7 % (0-9); NEUT # 5.4 x10^3uL (1.8-7.7); NEUT % 70 % (31-73); PLATELET COUNT 289 x10^3/uL (140-400); RED BLOOD COUNT 4.48 x10^6/uL (3.50-5.40); RED CELL DISTRIBUTION WIDTH 14.2 % (11.5-14.5); WHITE BLOOD COUNT 7.7 x10^3/uL (4.0-11.0)
[2018-05-02 07:18] LABS: CALCIUM 8.7 mg/dL (8.5-10.1); CREATININE 0.9 mg/dL (0.6-1.0); POTASSIUM 3.6 mmol/L (3.5-5.1)
[2018-05-02] MEDS: fentaNYL PF VIAL 100 MCG/2 ML VIAL IV PRN ×2 (07:21→07:40)
[2018-05-02 07:24] LABS: ALBUMIN 3.5 g/dL (3.4-5.0); ALBUMIN/GLOBULIN RATIO 0.9 (1.0-1.7); TOTAL BILIRUBIN 0.4 mg/dL (0.2-1.0); TOTAL PROTEIN 7.2 g/dL (6.4-8.2)
[2018-05-02 07:25] LABS: SQUAMOUS EPITHELIAL CELL,UR MANY /LPF
[2018-05-02 07:26] LABS: RBC,URINE FOBS /HPF (0-2)
[2018-05-02 07:27] LABS: BACTERIA,URINE MODERATE /HPF (0-FEW)
--- NOTE | 2018-05-02 08:04 | RAD ---
CT of the abdomen and pelvis without contrast, 05/02/2018: HISTORY: Right flank pain, history of kidney stones Noncontrast scans were obtained and compared to a study from 07/25/2016. No intrarenal calculi are identified. The left renal collecting system and left ureter show no abnormality. The right renal collecting system is distended. It contains material of higher density than simple fluid with the renal pelvis demonstrating a CT number of approximately 35 Hounsfield units. The degree of right hydronephrosis has worsened slightly since 07/25/2016. There is mild streaky perinephric edema on the right. The right ureter is dilated as also noted on the previous exam. The fluid in the right ureter demonstrates a density higher than that of water. The distal ureters are not clearly defined in this patient. There are pelvic phleboliths. There is a tiny 2-3 mm radiopacity along the posterior wall of the urinary bladder on the right raising the possibility of a calculus lodged at the ureterovesical junction level. The urinary bladder is not well distended. The unopacified liver is unremarkable. No gallbladder abnormality is seen. The pancreas shows no abnormality. The spleen is of normal size. No abdominal or pelvic adenopathy is seen. The uterus is retroverted. The bowel loops are not dilated. No free fluid or free air is evident in the abdomen or pelvis. There is a small posterior disc protrusion at L2-3. IMPRESSION: 1. Recurrent or chronic right distal ureteral obstruction, probably due to a small calculus at the UVJ level. 2. Fluid in the distended right renal pelvis and ureter is of higher than normal density, which may be due to hemorrhage or infection. PQRS Compliance Statement: One or more of the following individualized dose reduction techniques were utilized for this examination: 1. Automated exposure control 2. Adjustment of the mA and/or kV according to patient size 3. Use of iterative reconstruction technique Electronically signed by: Deuce Rivera MD (05/02/2018 8:02 AM) [facility]
[2018-05-02 08:30] VITALS: BP 124/80
[2018-05-02] MEDS ORDERED: oxyCODONE/APAP 5/325 1 TAB TABLET PO ONE (08:30)
[2018-05-02] MEDS ORDERED: TAMSULOSIN 0.4 MG CAP.ER.24H. PO ONE (08:30)
[2018-05-02] MEDS ORDERED: ONDA4TAB12 PO (08:37)
[2018-05-02] MEDS ORDERED: TAMS0.4C97 PO (08:37)
[2018-05-02] MEDS ORDERED: OXYC1TAB15 PO (08:37)
[2018-05-02] MEDS ORDERED: LEVO500T59 PO (08:37)
--- NOTE | 2018-05-02 08:37 | PHYS DOC ---
Past Medical History Past Medical History: Anxiety, Depression, Kidney Stone, Ovarian Cyst, Other Additional Past Medical Histor: INSOMNIA, CHRONIC RIGHT SHOULDER PAIN. Past Surgical History: No Surgical History Alcohol Use: Occasionally Drug Use: None Adult General Chief Complaint Chief Complaint: ABDOMINAL PAIN HPI HPI 42-year-old female with a history of recurrent kidney stones presents with an acute onset of right flank pain that radiates to the right lower quadrant. She states initially started in the right flank and now seems to be more localized to the right pelvic area. She has had some associated nausea. No vomiting. No gross hematuria. She states this feels similar to previous kidney stones.[] Review of Systems Review of Systems Constitutional: Denies fever or chills [] Eyes: Denies change in visual acuity, redness, or eye pain [] HENT: Denies nasal congestion or sore throat [] Respiratory: Denies cough or shortness of breath [] Cardiovascular: No additional information not addressed in HPI [] GI: Per history of present illness she also does report some diarrhea this morning[] : Denies dysuria or hematuria [] Musculoskeletal: Denies back pain or joint pain [] Integument: Denies rash or skin lesions [] Neurologic: Denies headache, focal weakness or sensory changes [] Endocrine: Denies polyuria or polydipsia [] All other systems were reviewed and found to be within normal limits, except as documented in this note. Current Medications Current Medications Current Medications Medications (Trade) Dose Ordered Sig/Moreno Start Time Stop Time Status Last Admin Dose Admin Fentanyl Citrate (Fentanyl 2ml Vial) 50 mcg PRN Q15MIN PRN 05/02/18 07:15 05/03/18 07:14 05/02/18 07:40 50 MCG Ketorolac Tromethamine (Toradol 30mg Vial) 30 mg 1X ONCE 05/02/18 06:45 05/02/18 06:46 DC 05/02/18 06:48 30 MG Levofloxacin (Levaquin) 500 mg 1X ONCE 05/02/18 08:30 05/02/18 08:31 UNV Ondansetron HCl (Zofran) 4 mg 1X ONCE 05/02/18 06:45 05/02/18 06:46 DC 05/02/18 06:48 4 MG Oxycodone/ Acetaminophen (Percocet 5/325) 2 tab 1X ONCE 05/02/18 08:30 05/02/18 08:31 UNV Sodium Chloride 1,000 ml @ 1,000 mls/hr 1X ONCE 05/02/18 06:45 05/02/18 07:44 DC 05/02/18 06:49 1,000 MLS/HR Tamsulosin HCl (Flomax) 0.4 mg 1X ONCE 05/02/18 08:30 05/02/18 08:31 UNV Allergies Allergies Allergies Coded Allergies Type Severity Reaction Last Updated Verified erythromycin base Allergy Intermediate 06/16/16 Yes lactose Allergy Intermediate Nausea and Vomiting 07/25/16 Yes Physical Exam Physical Exam Constitutional: Well developed, well nourished, mild to moderate distress, non- toxic appearance. [] HENT: Normocephalic, atraumatic, bilateral external ears normal, oropharynx moist, no oral exudates, nose normal. [] Eyes: PERRLA, EOMI, conjunctiva normal, no discharge. [] Neck: Normal range of motion, no tenderness, supple, no stridor. [] Cardiovascular:Heart rate regular rhythm, no murmur [] Lungs & Thorax: Bilateral breath sounds clear to auscultation [] Abdomen: Bowel sounds normal, soft, no tenderness, no masses, no pulsatile masses. [] Skin: Warm, dry, no erythema, no rash. [] Back: No tenderness, no CVA tenderness. [] Extremities: No tenderness, no cyanosis, no clubbing, ROM intact, no edema. [] Neurologic: Alert and oriented X 3, normal motor function, normal sensory function, no focal deficits noted. [] Psychologic: Extremely anxious. [] Current Patient Data Vital Signs Vital Signs Date Time Temp Pulse Resp B/P (MAP) Pulse Ox O2 Delivery O2 Flow Rate FiO2 05/02/18 07:40 76 15 100 Room Air 05/02/18 06:33 97.6 136/74 (94) 97.6 Lab Values Laboratory Tests Test 05/02/18 06:35 05/02/18 06:43 Urine Collection Type Unknown Urine Color Yellow Urine Clarity Cloudy Urine pH 6.0 Urine Specific Harvey >=1.030 Urine Protein Negative mg/dL (NEG-TRACE) Urine Glucose (UA) Negative mg/dL (NEG) Urine Ketones (Stick) 15 mg/dL (NEG) Urine Blood Large (NEG) Urine Nitrite Negative (NEG) Urine Bilirubin Small (NEG) Urine Urobilinogen Dipstick 1.0 mg/dL (0.2 mg/dL) Urine Leukocyte Esterase Moderate (NEG) Urine RBC Fobs /HPF (0-2) Urine WBC 11-20 /HPF (0-4) Urine Squamous Epithelial Cells Many /LPF Urine Bacteria Moderate /HPF (0-FEW) White Blood Count 7.7 x10^3/uL (4.0-11.0) Red Blood Count 4.48 x10^6/uL (3.50-5.40) Hemoglobin 12.8 g/dL (12.0-15.5) Hematocrit 38.6 % (36.0-47.0) Mean Corpuscular Volume 86 fL (79-100) Mean Corpuscular Hemoglobin 29 pg (25-35) Mean Corpuscular Hemoglobin Concent 33 g/dL (31-37) Red Cell Distribution Width 14.2 % (11.5-14.5) Platelet Count 289 x10^3/uL (140-400) Neutrophils (%) (Auto) 70 % (31-73) Lymphocytes (%) (Auto) 19 % (24-48) L Monocytes (%) (Auto) 7 % (0-9) Eosinophils (%) (Auto) 3 % (0-3) Basophils (%) (Auto) 1 % (0-3) Neutrophils # (Auto) 5.4 x10^3uL (1.8-7.7) Lymphocytes # (Auto) 1.5 x10^3/uL (1.0-4.8) Monocytes # (Auto) 0.5 x10^3/uL (0.0-1.1) Eosinophils # (Auto) 0.2 x10^3/uL (0.0-0.7) Basophils # (Auto) 0.1 x10^3/uL (0.0-0.2) Sodium Level 143 mmol/L (136-145) Potassium Level 3.6 mmol/L (3.5-5.1) Chloride Level 105 mmol/L (98-107) Carbon Dioxide Level 24 mmol/L (21-32) Anion Gap 14 (6-14) Blood Urea Nitrogen 17 mg/dL (7-20) Creatinine 0.9 mg/dL (0.6-1.0) Estimated GFR (Cockcroft-Gault) 69.0 BUN/Creatinine Ratio 19 (6-20) Glucose Level 104 mg/dL (70-99) H Calcium Level 8.7 mg/dL (8.5-10.1) Total Bilirubin 0.4 mg/dL (0.2-1.0) Aspartate Amino Transferase (AST) 19 U/L (15-37) Alanine Aminotransferase (ALT) 28 U/L (14-59) Alkaline Phosphatase 56 U/L (46-116) Total Protein 7.2 g/dL (6.4-8.2) Albumin 3.5 g/dL (3.4-5.0) Albumin/Globulin Ratio 0.9 (1.0-1.7) L Lipase 80 U/L (73-393) Laboratory Tests 05/02/18 06:43 Laboratory Tests 05/02/18 06:43 EKG EKG [] Radiology/Procedures Radiology/Procedures [] Impressions: REASON: right flank pain PROCEDURE: CT ABDOMEN PELVIS WO CONTRAST CT of the abdomen and pelvis without contrast, 05/02/2018: HISTORY: Right flank pain, history of kidney stones Noncontrast scans were obtained and compared to a study from 07/25/2016. No intrarenal calculi are identified. The left renal collecting system and left ureter show no abnormality. The right renal collecting system is distended. It contains material of higher density than simple fluid with the renal pelvis demonstrating a CT number of approximately 35 Hounsfield units. The degree of right hydronephrosis has worsened slightly since 07/25/2016. There is mild streaky perinephric edema on the right. The right ureter is dilated as also noted on the previous exam. The fluid in the right ureter demonstrates a density higher than that of water. The distal ureters are not clearly defined in this patient. There are pelvic phleboliths. There is a tiny 2-3 mm radiopacity along the posterior wall of the urinary bladder on the right raising the possibility of a calculus lodged at the ureterovesical junction level. The urinary bladder is not well distended. The unopacified liver is unremarkable. No gallbladder abnormality is seen. The pancreas shows no abnormality. The spleen is of normal size. No abdominal or pelvic adenopathy is seen. The uterus is retroverted. The bowel loops are not dilated. No free fluid or free air is evident in the abdomen or pelvis. There is a small posterior disc protrusion at L2-3. IMPRESSION: 1. Recurrent or chronic right distal ureteral obstruction, probably due to a small calculus at the UVJ level. 2. Fluid in the distended right renal pelvis and ureter is of higher than normal density, which may be due to hemorrhage or infection. Course & Med Decision Making Course & Med Decision Making Pertinent Labs and Imaging studies reviewed. (See chart for details) [ED course: Evaluation reveals a 42-year-old female with right flank pain that radiates to her right lower pelvis. CT scan shows a distal ureteral obstruction likely secondary to a small stone. Her urinalysis looks as if she might have an infection. She was given multiple doses of fentanyl, Zofran and a liter of fluids, Levaquin 500 milligrams, Flomax 0.4 mg and Percocet for her symptoms. She felt much better. I think she can go home with pain medication, antibiotics and Flomax. I've encouraged her to drink plenty of fluids. She'll follow with urology as an outpatient.] Dragon Disclaimer Dragon Disclaimer This electronic medical record was generated, in whole or in part, using a voice recognition dictation system. Departure Departure Impression: Primary Impression: Ureteral obstruction, right Additional Impression: Urinary tract infection Disposition: 01 HOME, SELF-CARE Condition: IMPROVED Referrals: CLARISSA HALL APRN (PCP) JOHNATHON GALEAS MD Call Dr. Galeas today to schedule a follow-up appointment in the next 2-3 days. Patient Instructions: Diet for Kidney Stones, Kidney Stones, Urinary Tract Infection Additional Instructions: Please follow with the urologist this week for recheck. Return to the emergency department with any new or concerning symptoms Scripts Ondansetron (ONDANSETRON ODT) 4 Mg Tab.rapdis 1 TAB PO PRN Q6-8HRS for VOMITING, #16 TAB Prov: MARQUIS SPAIN DO 05/02/18 Oxycodone/Apap 5-325 (PERCOCET 5-325 MG TABLET ) 1 Each Tablet 1 TAB PO PRN Q6HRS PRN for PAIN, #20 TAB 0 Refills Prov: MARQUIS SPAIN DO 05/02/18 Levofloxacin (LEVAQUIN) 500 Mg Tablet 1 TAB PO DAILY for urinary tract infection, #10 TAB Prov: MARQUIS SPAIN DO 05/02/18 Tamsulosin Hcl (FLOMAX) 0.4 Mg Cap.er.24h 1 CAP PO DAILY, #30 CAP 11 Refills Prov: MARQUIS SPAIN DO 05/02/18 Problem Qualifiers Additional Impression: Urinary tract infection Urinary tract infection type: site unspecified Hematuria presence: with hematuria Qualified Codes: N39.0 - Urinary tract infection, site not specified ; R31.9 - Hematuria, unspecified MARQUIS SPAIN DO May 02, 2018 08:37
== END 2018-05-02 08:50 | disposition home or self-care (01) ==
LOC: ER 06:18
DX: N13.1 Hydronephrosis with ureteral stricture, not elsewhere classified (principal); R19.7 Diarrhea, unspecified; F41.9 Anxiety disorder, unspecified; F32.9 Major depressive disorder, single episode, unspecified; Z88.1 Allergy status to other antibiotic agents; Z87.442 Personal history of urinary calculi; Z91.011 Allergy to milk products
CPT/HCPCS: 36415; 74176; 80053; 81001; 83690; 85025; 87086; 96361; 96374; 96375; 96376; 99284; J1885; J2405; J3010; J7030

== ENCOUNTER → 2020-03-04 | Outpatient (CLI) | payer BC ==
[~2020-03-04] MED LIST changes: +LEVO500T59 PO; +ONDA4TAB12 PO; +OXYC1TAB15 PO
--- NOTE | 2020-03-04 16:18 | RAD ---
EXAM: Pelvic sonogram. HISTORY: Abnormal uterine bleeding. TECHNIQUE: Transabdominal and transvaginal sonographic imaging of the pelvis was performed. COMPARISON: None. FINDINGS: The uterus measures 6.7 x 5.6 x 3.8 cm. The endometrial stripe measures 6.9 mm in thickness . The uterus is retroverted. The ovaries are normal in size and demonstrate normal blood flow. There are multiple prominent right ovarian follicles, the largest of which measures 1.3 cm. There is no pel brittany free fluid. IMPRESSION: 1. Normal endometrial stripe for the reported premenopausal status of patient. 2. Retroverted uterus. 3. Dominant physiologic right ovarian follicle measuring 1.3 cm. Electronically signed by: Amanda Ospina MD (03/04/2020 4:15 PM) [id number]
== END ==
LOC: US 14:35
PROVIDERS: ATTEND Nurse Practitioner Family
DX: N83.01 Follicular cyst of right ovary (principal); N93.9 Abnormal uterine and vaginal bleeding, unspecified
CPT/HCPCS: 76830; 76856

== ENCOUNTER 2021-04-14 14:39 | Emergency (ER) | payer BC, OTHER ==
[~2021-04-14] VITALS: Ht 162.6 cm; Wt 85.0 kg
[~2021-04-14 14:39] MED LIST changes: +CYCL10TA19 PO; -CYCL10TA2 PO; -PHEN37.5 PO; +PHEN37.59 PO
[2021-04-14] MEDS ORDERED: IV NORMAL SALINE 1000ML BAG 1,000 ML IV ONE (16:15)
[2021-04-14] MEDS ORDERED: KETOROLAC 30 MG/ML VIAL. IVP ONE (16:15)
[2021-04-14 16:39] LABS: BILIRUBIN,URINE NEGATIVE (NEG); CLARITY,URINE CLEAR; COLOR,URINE YELLOW
[2021-04-14 16:40] LABS: NITRITE,URINE NEGATIVE (NEG); PROTEIN,URINE 30 mg/dL (NEG-TRACE); UROBILINOGEN,URINE 0.2 mg/dL (0.2 mg/dL)
[2021-04-14 16:41] LABS: BACTERIA,URINE 0 /HPF (0-FEW); RBC,URINE 20-40 /HPF (0-2)
[2021-04-14 17:04] LABS: BASO # 0.1 x10^3/uL (0.0-0.2); BASO % 1 % (0-3); EOS % 0 % (0-3); HEMATOCRIT 36.8 % (36.0-47.0); HEMOGLOBIN 12.1 g/dL (12.0-15.5); LYMPH % 8 % (24-48); MEAN CORPUSCULAR HEMOGLOBIN 29 pg (25-35); MEAN CORPUSCULAR HGB CONC 33 g/dL (31-37); MEAN CORPUSCULAR VOLUME 87 fL (79-100); MONO # 0.9 x10^3/uL (0.0-1.1); MONO % 7 % (0-9); NEUT # 11.1 x10^3/uL (1.8-7.7); NEUT % 85 % (31-73); PLATELET COUNT 299 x10^3/uL (140-400); RED BLOOD COUNT 4.24 x10^6/uL (3.50-5.40); RED CELL DISTRIBUTION WIDTH 14.2 % (11.5-14.5); WHITE BLOOD COUNT 13.1 x10^3/uL (4.0-11.0)
[2021-04-14 17:15] LABS: CALCIUM 8.5 mg/dL (8.5-10.1); CREATININE 1.4 mg/dL (0.6-1.0); GFR 40.8
[2021-04-14 17:21] LABS: ALBUMIN 3.8 g/dL (3.4-5.0); ALBUMIN/GLOBULIN RATIO 0.9 (1.0-1.7); TOTAL BILIRUBIN 0.4 mg/dL (0.2-1.0)
--- NOTE | 2021-04-14 18:06 | RAD ---
INDICATION: Reason: Stone study, left CVA tenderness / Spl. Instructions: / History: COMPARISON: April 2018 TECHNIQUE: Axial CT images were obtained through the abdomen and pelvis without intravenous contrast. One or more of the following individualized dose reduction techniques were utilized for this examinat ion: 1. Automated exposure control; 2. Adjustment of the mA and/or kV according to patient size; 3 . Use of iterative reconstruction technique. FINDINGS: Vascular: No abdominal aortic aneurysm. Hepatobiliary: Regional low density adjacent to falciform ligament. Commonly from focal fat. Pancreas: Limited assessment without contrast. Spleen: Spleen unremarkable. Renal/Bladder: Bilateral nonobstructive renal stones. Moderate left-sided hydronephrosis and hydroure ter with adjacent edema in the fat and 4 mm stone at left ureterovesicular junction. Probable diverti culum off of stomach superior to left kidney. Urinary bladder has minimal urine within it at time of exam. Gastrointestinal: No periappendiceal inflammatory changes. Degenerative changes of the spine. Multilevel central canal and neural foraminal stenosis with disc p rotrusions and osteophyte formation. IMPRESSION: * Left-sided hydronephrosis and hydroureter with adjacent edema and distal ureter stone. Electronically signed by: Pablo Nick MD (04/14/2021 6:03 PM) [id number]
--- NOTE | 2021-04-14 18:20 | PHYS DOC ---
Past Medical History Past Medical History: Anxiety, Depression, Kidney Stone, Ovarian Cyst, Other Additional Past Medical Histor: INSOMNIA, KIDNEY STONES Past Surgical History: No Surgical History Smoking Status: Never Smoker Alcohol Use: None Drug Use: None General Adult EDM: Chief Complaint: FLANK PAIN HPI: HPI: Patient is a 45-year-old female who presents to the emergency department reporting being awoken at 330 this morning with left flank pain. Patient reports this presented just like her last kidney stone she had 5 years ago. Patient reports she took a Flomax and Naprosyn at 7:00 this morning that she had leftover from her previous kidney stone from 2017 however has not felt much relief. Patient reports a 10 out of 10 pain at onset, has come down to a 5 out of 10 after taking pain medication at home. Patient reports some nausea without vomiting, diarrhea or constipation. Patient denies recent fever or chills, denies chest pain, chest palpitations, chest or nasal congestion. Patient denies dizziness, syncopal or near syncopal episodes. Patient denies increased urinary frequency, urinary burning, urinary pressure, hematuria or other dysuria. Patient does report a history of ovarian cysts, takes a daily control medication to prevent menstrual cycles. Patient reports she has not had a menstrual cycle for several years. Patient reports taking 500 mg of Naprosyn twice daily, cyclobenzaprine 10 mg twice daily for chronic leg and back pains, patient also takes Ambien for sleep, Wellbutrin XL and Zoloft for depression. Patient reports an allergy to erythromycin based medications. Patient denies other physical complaints or physical concerns. Review of Systems: Review of Systems: 14 body systems of review of systems have been reviewed. See HPI for pertinent positives and negative responses, otherwise all other systems are negative, nonpertinent or noncontributory. Constitutional: Negative except as outlined in HPI above. Skin: Negative except as outlined in HPI above. Eyes: Negative except as outlined in HPI above. HENT: Negative except as outlined in HPI above. Respiratory: Negative except as outlined in HPI above. Cardiovascular: Negative except as outlined in HPI above. GI: Negative except as outlined in HPI above. : Negative except as outlined in HPI above. Musculoskeletal: Negative except as outlined in HPI above. Integument: Negative except as outlined in HPI above. Neurologic: Negative except as outlined in HPI above. Endocrine: Negative except as outlined in HPI above. Lymphatic: Negative except as outlined in HPI above. Psychiatric: Negative except as outlined in HPI above. Heart Score: C/O Chest Pain: No Risk Factors: Risk Factors: DM, Current or recent (<one month) smoker, HTN, HLP, family history of CAD, obesity. Risk Scores: Score 0 - 3: 2.5% MACE over next 6 weeks - Discharge Home Score 4 - 6: 20.3% MACE over next 6 weeks - Admit for Clinical Observation Score 7 - 10: 72.7% MACE over next 6 weeks - Early Invasive Strategies Current Medications: Current Medications Medications (Trade) Dose Ordered Sig/Moreno Start Time Stop Time Status Last Admin Dose Admin Ketorolac Tromethamine (Toradol 30mg Vial) 30 mg 1X ONCE 04/14/21 16:15 04/14/21 16:21 DC 04/14/21 16:49 30 MG Sodium Chloride 1,000 ml @ 1,000 mls/hr 1X ONCE 04/14/21 16:15 04/14/21 17:14 DC 04/14/21 16:49 1,000 MLS/HR Allergies: Allergies: Allergies Coded Allergies Type Severity Reaction Last Updated Verified erythromycin base Allergy Intermediate 04/14/21 Yes lactose Allergy Intermediate Nausea and Vomiting 04/14/21 Yes Physical Exam: PE: Constitutional: Well developed, well nourished, no acute distress, non-toxic appearance. 45-year-old female appears uncomfortable otherwise in no apparent distress. HENT: Normocephalic, atraumatic. Eyes: Conjunctiva normal, no discharge. Neck: Normal range of motion, no stridor. Cardiovascular: No cyanosis appreciated, distal cap refill less than 2 seconds. Regular rate and rhythm, heart sounds S1-S2 auscultation. Lungs & Thorax: Patient is in no respiratory distress, lung sounds are clear to auscultation all lung hansen Abdomen: Nontender, no abnormalities noted. No abdominal skin discoloration to the abdomen. Skin: Warm, dry, no erythema, no rash. Back: No deformities present, no midline spinal tenderness, no right-sided CVA TTP, there is left-sided CVA TTP no ecchymosis appreciated to the low back. Extremities: No tenderness, no cyanosis, no clubbing, ROM intact, no edema. Neurologic: Alert and oriented X 3, normal motor function, normal sensory function, no focal deficits noted. Psychologic: Affect normal, judgement normal, mood normal. Current Patient Data: Labs: Laboratory Tests Test 04/14/21 15:59 04/14/21 16:06 04/14/21 16:50 Urine Collection Type Unknown Urine Color Yellow Urine Clarity Clear Urine pH 6.0 Urine Specific [place] >=1.030 Urine Protein 30 mg/dL Urine Glucose (UA) Negative mg/dL Urine Ketones (Stick) Trace mg/dL Urine Blood Moderate Urine Nitrite Negative Urine Bilirubin Negative Urine Urobilinogen Dipstick 0.2 mg/dL Urine Leukocyte Esterase Negative Urine RBC 20-40 /HPF Urine WBC 1-4 /HPF Urine Squamous Epithelial Cells Mod /LPF Urine Bacteria 0 /HPF Urine Mucus Marked /LPF Bedside Urine HCG, Qualitative Hcg negative White Blood Count 13.1 x10^3/uL Red Blood Count 4.24 x10^6/uL Hemoglobin 12.1 g/dL Hematocrit 36.8 % Mean Corpuscular Volume 87 fL Mean Corpuscular Hemoglobin 29 pg Mean Corpuscular Hemoglobin Concent 33 g/dL Red Cell Distribution Width 14.2 % Platelet Count 299 x10^3/uL Neutrophils (%) (Auto) 85 % Lymphocytes (%) (Auto) 8 % Monocytes (%) (Auto) 7 % Eosinophils (%) (Auto) 0 % Basophils (%) (Auto) 1 % Neutrophils # (Auto) 11.1 x10^3/uL Lymphocytes # (Auto) 1.0 x10^3/uL Monocytes # (Auto) 0.9 x10^3/uL Eosinophils # (Auto) 0.0 x10^3/uL Basophils # (Auto) 0.1 x10^3/uL Sodium Level 137 mmol/L Potassium Level 4.0 mmol/L Chloride Level 102 mmol/L Carbon Dioxide Level 26 mmol/L Anion Gap 9 Blood Urea Nitrogen 16 mg/dL Creatinine 1.4 mg/dL Estimated GFR (Cockcroft-Gault) 40.8 BUN/Creatinine Ratio 11 Glucose Level 104 mg/dL Calcium Level 8.5 mg/dL Total Bilirubin 0.4 mg/dL Aspartate Amino Transf (AST/SGOT) 12 U/L Alanine Aminotransferase (ALT/SGPT) 21 U/L Alkaline Phosphatase 59 U/L Total Protein 8.0 g/dL Albumin 3.8 g/dL Albumin/Globulin Ratio 0.9 Current Medications Medications (Trade) Dose Ordered Sig/Moreno Route PRN Reason Start Time Stop Time Status Last Admin Dose Admin Sodium Chloride 1,000 ml @ 1,000 mls/hr 1X ONCE IV 04/14/21 16:15 04/14/21 17:14 DC 04/14/21 16:49 Ketorolac Tromethamine (Toradol 30mg Vial) 30 mg 1X ONCE IVP 04/14/21 16:15 04/14/21 16:21 DC 04/14/21 16:49 Laboratory Tests Test 04/14/21 15:59 04/14/21 16:06 04/14/21 16:50 Urine Collection Type Unknown Urine Color Yellow Urine Clarity Clear Urine pH 6.0 (<5.0-8.0) Urine Specific [place] >=1.030 (1.000-1.030) Urine Protein 30 mg/dL (NEG-TRACE) Urine Glucose (UA) Negative mg/dL (NEG) Urine Ketones (Stick) Trace mg/dL (NEG) Urine Blood Moderate (NEG) Urine Nitrite Negative (NEG) Urine Bilirubin Negative (NEG) Urine Urobilinogen Dipstick 0.2 mg/dL (0.2 mg/dL) Urine Leukocyte Esterase Negative (NEG) Urine RBC 20-40 /HPF (0-2) Urine WBC 1-4 /HPF (0-4) Urine Squamous Epithelial Cells Mod /LPF Urine Bacteria 0 /HPF (0-FEW) Urine Mucus Marked /LPF POC Urine HCG, Qualitative Hcg negative (Negative) White Blood Count 13.1 x10^3/uL (4.0-11.0) H Red Blood Count 4.24 x10^6/uL (3.50-5.40) Hemoglobin 12.1 g/dL (12.0-15.5) Hematocrit 36.8 % (36.0-47.0) Mean Corpuscular Volume 87 fL (79-100) Mean Corpuscular Hemoglobin 29 pg (25-35) Mean Corpuscular Hemoglobin Concent 33 g/dL (31-37) Red Cell Distribution Width 14.2 % (11.5-14.5) Platelet Count 299 x10^3/uL (140-400) Neutrophils (%) (Auto) 85 % (31-73) H Lymphocytes (%) (Auto) 8 % (24-48) L Monocytes (%) (Auto) 7 % (0-9) Eosinophils (%) (Auto) 0 % (0-3) Basophils (%) (Auto) 1 % (0-3) Neutrophils # (Auto) 11.1 x10^3/uL (1.8-7.7) H Lymphocytes # (Auto) 1.0 x10^3/uL (1.0-4.8) Monocytes # (Auto) 0.9 x10^3/uL (0.0-1.1) Eosinophils # (Auto) 0.0 x10^3/uL (0.0-0.7) Basophils # (Auto) 0.1 x10^3/uL (0.0-0.2) Sodium Level 137 mmol/L (136-145) Potassium Level 4.0 mmol/L (3.5-5.1) Chloride Level 102 mmol/L (98-107) Carbon Dioxide Level 26 mmol/L (21-32) Anion Gap 9 (6-14) Blood Urea Nitrogen 16 mg/dL (7-20) Creatinine 1.4 mg/dL (0.6-1.0) H Estimated GFR (Cockcroft-Gault) 40.8 BUN/Creatinine Ratio 11 (6-20) Glucose Level 104 mg/dL (70-99) H Calcium Level 8.5 mg/dL (8.5-10.1) Total Bilirubin 0.4 mg/dL (0.2-1.0) Aspartate Amino Transferase (AST) 12 U/L (15-37) L Alanine Aminotransferase (ALT) 21 U/L (14-59) Alkaline Phosphatase 59 U/L (46-116) Total Protein 8.0 g/dL (6.4-8.2) Albumin 3.8 g/dL (3.4-5.0) Albumin/Globulin Ratio 0.9 (1.0-1.7) L Laboratory Tests 04/14/21 16:50 Laboratory Tests 04/14/21 16:50 Vital Signs: Vital Signs Date Time Temp Pulse Resp B/P (MAP) Pulse Ox O2 Delivery O2 Flow Rate FiO2 04/14/21 15:47 98.5 93 18 118/73 (88) 98 Room Air 98.5 EKG: EKG: [] Radiology/Procedures: Radiology/Procedures: STATUS: REG ER ORD. PHYSICIAN: NIKKI WRIGHT APRN REASON: Stone study, left CVA tenderness PROCEDURE: CT ABDOMEN PELVIS WO CONTRAST INDICATION: Reason: Stone study, left CVA tenderness / Spl. Instructions: / History: COMPARISON: April 2018 TECHNIQUE: Axial CT images were obtained through the abdomen and pelvis without intravenous contrast. One or more of the following individualized dose reduction techniques were utilized for this examination: 1. Automated exposure control; 2. Adjustment of the mA and/or kV according to patient size; 3. Use of iterative reconstruction technique. FINDINGS: Vascular: No abdominal aortic aneurysm. Hepatobiliary: Regional low density adjacent to falciform ligament. Commonly from focal fat. Pancreas: Limited assessment without contrast. Spleen: Spleen unremarkable. Renal/Bladder: Bilateral nonobstructive renal stones. Moderate left-sided hydronephrosis and hydroureter with adjacent edema in the fat and 4 mm stone at left ureterovesicular junction. Probable diverticulum off of stomach superior to left kidney. Urinary bladder has minimal urine within it at time of exam. Gastrointestinal: No periappendiceal inflammatory changes. Degenerative changes of the spine. Multilevel central canal and neural foraminal stenosis with disc protrusions and osteophyte formation. IMPRESSION: * Left-sided hydronephrosis and hydroureter with adjacent edema and distal ureter stone. Electronically signed by: Pablo Nick MD (04/14/2021 6:03 PM) [id number] Course & Med Decision Making: Course & Med Decision Making Pertinent Labs and Imaging studies reviewed. (See chart for details) 45-year-old female, vital signs reviewed, presents to the emergency department with chief complaint of kidney stone pain on the left. Patient's physical examination is consistent with renal colic. Will order urinalysis assay, IV saline lock, IV 4 mg Zofran for nausea, IV Toradol for pain, CT abdomen pelvis without contrast stone study. CBC, CMP. Patient's urine is not infected, CBC and CMP equivocal results, CT abdomen pelvis without IV contrast concerning for 4 mm stone at the UVJ. Upon reevaluation of the patient, patient reports her pain is almost gone stating "it is definitely less than the 1 ". Discussed findings with patient, patient wishes to go home stating that she feels good, discussed with patient will prescribe Flomax, strict follow-up with primary care, catch all urine through strainer, collect stone and take to primary care or urology appointment. Discussed with patient drink plenty of fluids at home, will prescribe pain medications, patient gave verbal understanding of and is amenable to ED discharge planning. Discussed with the patient all findings and diagnostic testing as well as the need to follow-up with their primary care provider for further evaluation and treatment or return to the ED if any new or worsening symptoms. Strict return precautions were also discussed at length, the patient voiced understanding and agreement with the discharge planning. The patient was nontoxic in appearance, in no apparent distress, and hemodynamically stable at the time of disposition. Dragon Disclaimer: Dragon Disclaimer: This electronic medical record was generated, in whole or in part, using a voice recognition dictation system. Departure Departure Impression: Primary Impression: Kidney stone Disposition: HOME / SELF CARE / HOMELESS Condition: GOOD Referrals: CATHY MARLEY APRN (PCP) JOSE SMITH MD Patient Instructions: Kidney Stones Additional Instructions: You were seen today in the emergency department for left-sided abdominal discomfort, a CT scan showed that you have a 4 mm kidney stone at the junction were the ureter meets the bladder primary kidney. You were given IV pain medica tion a liter of saline today in the emergency department. Please continue to drink p.o. fluids. There was 1 concerning finding of your kidney function test. Your creatinine was 1.4. Please follow-up with your primary care provider Cathy Marley APRN and have your creatinine and BUN redrawn for reevaluation next week. Please strain all urine and catch stone, collect and bring to your appointment with your primary care provider. I have listed a urologist for you to follow-up with if needed above. I have sent pain medications and Flomax to the pharmacy [facility] in [place]. Please take as directed. Please return to the emergency department for worsening symptoms, unbearable pain not relieved by prescribed medications, or other concerns. Thank you for visiting our Emergency Department. It was a pleasure taking care of you today in the emergency department and we appreciate you trusting us with your care. If any additional problems come up don't hesitate to return to visit us. Please follow up with your primary care provider so they can plan additional care if needed an d know about the problem that you had. If symptoms worsen come back to the Emergency Department. Any concerning symptoms that start such as chest pain, shortness of air, weakness or numbness on one side of the body, running high fevers or any other concerning symptoms return to the ER. EMERGENCY DEPARTMENT GENERAL DISCHARGE INSTRUCTIONS Thank you for coming to [facility] Emergency Department (ED) today and trusting us with you care. We trust that you had a positive experience in our Emergency Department. If you wish to speak to the department management, you may call the Director at [phone]. YOUR FOLLOW UP INSTRUCTIONS ARE FOLLOWS: 1. Do you have a private Doctor? If you do not have a private doctor, please ask for a resource list of physicians or clinics that may be able to assist you with follow up care. 2. The Emergency Physicain has interpreted your x-rays. The X-Ray specialist will also review them. If there is a change in the findings, you will be notified in 48 hours when at all possible. 3. A lab test or culture has been done, your results will be reviewed and you will be notified if you need a change in treatment. ADDITIONAL INSTRUCTIONS AND INFORMATION: 1. Your care today has been supervised by a physician who is specially trained in emergency care. Many problems require more than one evaluation for a complete diagnosis and treatment. We recommend that you schedule your follow up appointment as recommended to ensure complete treatment of you illness or injury. If you are unable to obtain follow up care and continue to have a problem, or if your condition worsens, we recommend that you return to the ED. 2. We are not able to safely determine your condition over the phone nor are we able to give sound medical advice over the phone. For these safety reasons, if you call for medical advice we will ask you to come to the ED for further evaluation. 3. If you have any questions regarding these discharge instructions please call the ED at [phone]. SAFETY INFORMATION: In the interest of safety, wellness, and injury prevention; we encourage you to wear your sealbelt, if you smoke; quite smoking, and we encourage family to use a protective helmet for bicycling and other sporting events that present an increased risk for head injury. IF YOUR SYMPTOMS WORSEN OR NEW SYMPTOMS DEVELOP, OR YOU HAVE CONCERNS ABOUT YOUR CONDITION; OR IF YOUR CONDITION WORSENS WHILE YOU ARE WAITING FOR YOUR FOLLOW UP APPOINTMENT; EITHER CONTACT YOUR PRIMARY CARE DOCTOR, THE PHYSICIAN WHOSE NAME AND NUMBER YOU WERE GIVEN, OR RETURN TO THE ED IMMEDIATELY. Scripts Hydrocodone Bit/Acetaminophen (HYDROCODONE-APAP 5-325 ) 1 Tab Tablet 1 TAB PO PRN Q6HRS PRN for PAIN, #12 TAB 0 Refills Prov: NIKKI WRIGHT APRN 04/14/21 Tamsulosin Hcl (FLOMAX) 0.4 Mg Cap.er.24h 0.4 MG PO DAILY for 5 Days, #5 TAB 0 Refills Prov: NIKKI WRIGHT APRN 04/14/21 NIKKI WRIGHT APRN Apr 14, 2021 18:20
[2021-04-14] MEDS ORDERED: TAMSULOSIN 0.4 MG CAP.ER.24H. PO ONE (18:30)
[2021-04-14] MEDS ORDERED: TAMS0.4C97 PO (18:42)
[2021-04-14] MEDS ORDERED: HYDR-2761 PO (18:42)
[2021-04-14] MEDS ORDERED: MORPHINE SULFATE 4 MG/ML INJ. IVP ONE (19:00)
[2021-04-14 19:35] VITALS: BP 139/85
== END 2021-04-14 19:40 | disposition home or self-care (01) ==
LOC: ER 14:39
DX: N13.2 Hydronephrosis with renal and ureteral calculous obstruction (principal); Z88.1 Allergy status to other antibiotic agents; Z91.011 Allergy to milk products
CPT/HCPCS: 36415; 74176; 80053; 81001; 81025; 85025; 96361; 96374; 96375; 99285; J1885; J2270; J7030